=== PATIENT | male | born 1965 | race Two or more races ===

== ENCOUNTER 2016-09-23 02:38 | Observation (INO) | payer MEDICAID ==
[~2016-09-23] VITALS: Ht 170.2 cm; Wt 90.3 kg
[2016-09-23] MEDS ORDERED: ASPIRIN 81 MG TAB PO STA (03:49)
--- NOTE | 2016-09-23 03:54 | ERD ---
ER Documentation Chief Complaint Date/Time DATE: 09/23/16 TIME: 03:50 Chief Complaint Pt reports worsening CP and hx of stent x 1 12/03/15 HPI Patient is a 51-year-old male who presents with gradual onset, intermittent, pressure-like chest discomfort associated with shortness of breath for 1-1/2 months. He states that it is sometimes exacerbated when he eats or when he lies down at night, and improves when he walks. He denies cough, fever, abdominal pain, back pain. He states that he has had the sensation continuously for the entire day, and has had symptoms that last for entire days in the past. He cannot state why he chose to come to the ER today, but states that his symptoms are the same as they have been for the last month and a half. The patient had a stent placed in [facility] last year. He takes aspirin daily. 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 ROS All systems reviewed and are negative except as per history of present illness. Medications Home Meds Reported Medications [place]-3 Fatty Acids (OMEGA-3) 1,000 Mg Capsule, 1000 MG PO, CAP 09/23/16 Green Tea [place] Extract (Green Tea) 1 Each Capsule, 1 EACH PO, CAP 09/23/16 Rosuvastatin Calcium* (Crestor*) 20 Mg Tablet, 20 MG PO QHS, #30 TAB 09/23/16 Cholestyramine* (Cholestyramine* Powder) 378 Gm Powder, 4 GM PO QID, EA 09/23/16 Nicardipine Hcl* (Cardene*) 20 Mg Capsule, 20 MG PO, CAP 09/23/16 Aspirin* (Aspirin* EC) 81 Mg Tablet.dr, 81 MG PO DAILY, TAB 09/23/16 Hydrocodone/Acetaminophen ([place] 5-325 Tablet) 1 Each Tablet, 1 EACH PO, TAB 09/23/16 Ibuprofen* (Ibuprofen*) 800 Mg Tab, 800 MG PO Q6H Y for PAIN, TAB 09/23/16 Allergies Allergies: Coded Allergies: No Known Allergy (Unverified , 09/23/16) PMhx/Soc Past medical history: Coronary artery disease, hypercholesterolemia, neurogenic bladder, gastritis Past surgical history: Stent, left arm laceration repair Social history: Smokes occasionally, denies alcohol. FmHx Family History: No coronary disease, No diabetes Physical Exam Vitals Vital Signs Date Time Temp Pulse Resp B/P Pulse Ox O2 Delivery O2 Flow Rate FiO2 09/23/16 05:30 97.8 62 18 128/88 99 Room Air 09/23/16 03:55 61 19 135/79 98 Room Air 09/23/16 02:50 98.3 68 16 156/82 98 Physical Exam Const: Alert, no acute distress Head: Atraumatic Eyes: Normal Conjunctiva, no pallor, no icterus ENT: Normal External Ears, Nose and Mouth. Moist mucous membranes Neck: Full range of motion. No JVD Resp: Clear to auscultation bilaterally, no wheezes, no rales Cardio: Regular rate and rhythm, no murmurs Abd: Soft, non tender, non distended. No guarding, no rebound Skin: No petechiae or rashes Back: No midline or flank tenderness Ext: No cyanosis, or edema Neur: Awake and alert, cranial nerves II through XII intact bilaterally, moves and feels 4 extremities appropriately Psych: Normal Mood and Affect Result Diagram: 09/23/16 0400 09/23/16 0400 Results 24 hrs Laboratory Tests Test 09/23/16 04:00 White Blood Count 5.810^3/ul Red Blood Count 4.8110^6/ul Hemoglobin 14.3g/dl Hematocrit 40.7% Mean Corpuscular Volume 84.6fl Mean Corpuscular Hemoglobin 29.7pg Mean Corpuscular Hemoglobin Concent 35.1g/dl Red Cell Distribution Width 14.2% Platelet Count 03395^3/UL Mean Platelet Volume 12.1fl Neutrophils % 53.3% Lymphocytes % 31.6% Monocytes % 9.1% Eosinophils % 5.3% Basophils % 0.5% Nucleated Red Blood Cells % 0.0/100WBC Neutrophils # 3.110^3/ul Lymphocytes # 1.810^3/ul Monocytes # 0.510^3/ul Eosinophils # 0.310^3/ul Basophils # 0.010^3/ul Nucleated Red Blood Cells # 0.010^3/ul Prothrombin Time 13.2Sec Prothrombin Time Ratio 1.0 INR International Normalized Ratio 1.00 Activated Partial Thromboplast Time 34.5Sec Sodium Level 143mmol/L Potassium Level 3.9mmol/L Chloride Level 107mmol/L Carbon Dioxide Level 24mmol/L Anion Gap 16 Blood Urea Nitrogen 13mg/dl Creatinine 0.84mg/dl Glucose Level 85mg/dl Calcium Level 9.4mg/dl Total Bilirubin 0.4mg/dl Direct Bilirubin 0.00mg/dl Indirect Bilirubin 0.4mg/dl Aspartate Amino Transf (AST/SGOT) 30IU/L Alanine Aminotransferase (ALT/SGPT) 40IU/L Alkaline Phosphatase 97IU/L Troponin I 0.029ng/ml B-Type Natriuretic Peptide 42PG/ML Total Protein 7.6g/dl Albumin 4.9g/dl Globulin 2.70g/dl Albumin/Globulin Ratio 1.81 Current Medications Medications (Trade) Dose Ordered Sig/Martita Route PRN Reason Start Time Stop Time Status Last Admin Dose Admin Aspirin (Aspirin) 162 mg ONCE STAT PO 09/23/16 03:49 09/23/16 03:51 DC 09/23/16 04:11 Ondansetron HCl (Zofran Inj) 4 mg ER BRIDGE PRN IV NAUSEA AND/OR VOMITING 09/23/16 06:30 09/24/16 06:29 Acetaminophen (Tylenol Tab) 650 mg ER BRIDGE PRN PO MILD PAIN/FEVER 09/23/16 06:30 09/24/16 06:29 Procedures/MDM EKG read by me: Time 0245, rate 67 Rhythm: Normal sinus [place]: Left axis deviation Intervals: Normal ST-T waves: no ischemic changes Ectopy: No Q-waves: No Impression: Left ventricular hypertrophy, no evidence of ischemia or arrhythmia MDM: Patient is a 51-year-old male with history of coronary artery disease status post stent who presents to the ER for intermittent chest pain for the last month. His EKG shows LVH without ischemic changes, and his troponin is marginally elevated at 0.03. Given the patient's known history of coronary artery disease and lack of follow-up, I will admit him for ACS rule out and cardiology consultation. Aspirin was given in the ER. I suspect that the patient's symptoms may be gastrointestinal based upon his description, but I cannot exclude atypical presentation of ACS. There are no features that are concerning for PE or aortic dissection. Departure Diagnosis: Primary Impression: Chest pain Chest pain type: precordial pain Qualified Code: R07.2 - Precordial pain Condition: Stable GERRI GONGORA MD Sep 23, 2016 03:54
[2016-09-23 04:21] LABS: ADD SCAN DIFF NO
--- NOTE | 2016-09-23 04:25 | RADRPT ---
PROCEDURE: XR Chest. CLINICAL INDICATION: Chest pain TECHNIQUE: AP Portable chest. COMPARISON: No pertinent prior examinations were submitted for comparison. FINDINGS: There is mild cardiomegaly. There is mild pulmonary vascular congestion. The osseous structures ar e unremarkable. IMPRESSION: Mild pulmonary vascular congestion. RPTAT: HIKT .Mike Pat MD, MD Date Time Electronically viewed and signed by .Mike Pat MD, MD on 09/23/2016 04:25 .T/
[2016-09-23 04:43] LABS: ALBUMIN 4.9 g/dl (3.3-4.9); ALBUMIN/GLOBULIN RATIO 1.81; BILIRUBIN,INDIRECT 0.4 mg/dl (0-1.1); BILIRUBIN,TOTAL 0.4 mg/dl (0.2-1.3); CALCIUM 9.4 mg/dl (8.4-10.2); CREATININE 0.84 mg/dl (0.61-1.24); POTASSIUM 3.9 mmol/L (3.5-5.1); TOTAL PROTEIN 7.6 g/dl (6.1-8.1)
[2016-09-23 04:50] LABS: BASOPHILS % 0.5 % (0.0-2.0); EOSINOPHILS # 0.3 10^3/ul (0.0-0.5); EOSINOPHILS % 5.3 % (0.0-7.0); HEMATOCRIT 40.7 % (42.0-52.0); HEMOGLOBIN 14.3 g/dl (14.0-18.0); LYMPHOCYTES # 1.8 10^3/ul (0.8-2.9); LYMPHOCYTES % 31.6 % (15.0-51.0); MEAN CORPUSCULAR HEMOGLOBIN 29.7 pg (29.0-33.0); MEAN CORPUSCULAR HGB CONC 35.1 g/dl (32.0-37.0); MEAN CORPUSCULAR VOLUME 84.6 fl (82.0-101.0); MEAN PLATELET VOLUME 12.1 fl (7.4-10.4); MONOCYTE # 0.5 10^3/ul (0.3-0.9); MONOCYTES % 9.1 % (0.0-11.0); NEUTROPHIL # 3.1 10^3/ul (1.6-7.5); NEUTROPHILS % 53.3 % (39.0-77.0); PLATELET COUNT 212 10^3/UL (140-415); RED BLOOD COUNT 4.81 10^6/ul (4.70-6.10); RED CELL DISTRIBUTION WIDTH 14.2 % (11.5-14.5); WHITE BLOOD COUNT 5.8 10^3/ul (4.8-10.8)
[2016-09-23 04:53] LABS: TROPONIN-I 0.029 ng/ml (0.00-0.12)
[2016-09-23] MEDS ORDERED: CHOL378P PO (05:16)
[2016-09-23] MEDS ORDERED: OMEG10006 PO (05:16)
[2016-09-23] MEDS ORDERED: NICA20CA PO (05:16)
[2016-09-23] MEDS ORDERED: ASPI-664 PO (05:16)
[2016-09-23] MEDS ORDERED: ROSU20TA PO (05:16)
[2016-09-23] MEDS ORDERED: HYDR-906 PO (05:16)
[2016-09-23] MEDS ORDERED: IBUP800T25 PO (05:16)
[2016-09-23] MEDS ORDERED: GREE1CAP PO (05:16)
[2016-09-23 05:25] LABS: PROTIME 13.2 Sec (12.2-14.2)
[2016-09-23 05:26] LABS: PARTIAL THROMBOPLASTIN TIME 34.5 Sec (25.0-35.0)
[2016-09-23 05:30] VITALS: TEMP 97.8
[2016-09-23] MEDS ORDERED: ACETAMINOPHEN 325 MG TAB PO PRN ×2 (06:30→07:30)
[2016-09-23] MEDS ORDERED: ONDANSETRON 4 MG INJ IV PRN ×2 (06:30→07:30)
[2016-09-23] MEDS ORDERED: NACL 0.9% 3 ML SYG IV SCH (07:30)
[2016-09-23] MEDS: SOD CHLORIDE 0.9% 1,000 ML IV SCH ×2 (08:20→20:39)
--- NOTE | 2016-09-23 09:27 | HP ---
Date/Time of Note Date/Time of Note DATE: 09/23/16 TIME: 09:20 Assessment/Plan VTE Prophylaxis VTE Prophylaxis Intervention: heparin Lines/Catheters IV Catheter Type (from Nrsg): Saline Lock Assessment/Plan Problems: (1) Chest pain Status: Acute Comment: His history is somewhat nebulous and is not entirely clear that this is cardiac chest pain. However given the prior history and the multiple risk factors we will err on the side of caution bring him in for rule out [place] protocol and formalized evaluation. It is an atypical presentation especially given his prior history. Cardiology consult has been requested as has echocardiography. Qualifiers: Chest pain type: other chest pain Qualified Code: R07.89 - Other chest pain (2) History of coronary artery stent placement Status: Chronic Comment: Noted. (3) Essential hypertension Status: Chronic Comment: He has been on nicardipine. For the time being given the chest pain and we can switch that over to a beta-heidy with an A2 receptor heidy (4) Hyperlipidemia Status: Chronic Comment: We will continue statin therapy along with omega-3 fish oil. Qualifiers: Hyperlipidemia type: mixed hyperlipidemia Qualified Code: E78.2 - Mixed hyperlipidemia (5) Closed compression fracture of L1 lumbar vertebral body Status: Chronic Comment: Noted. (6) History of neurogenic bladder Status: Chronic Comment: Will be doing bladder scans and intermittent catheterization as indicated. 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 He reports a history of a prior coronary stenting. He has a history of hypertension and hyperlipidemia but not diabetes. He smokes but is attempting to minimize how much she is smoking. He has recently moved into this area 5 months ago and has made contact with the primary care physician once at a clinic in [place]. His prior cardiac interventions were in [facility]. He reports that he was in his usual state of health in the last 1-1-1/2 months he has noticed sensation of pressure as if there is a pressure of coming from the stomach up into the chest. His also had pinpoint right sided costosternal pain. This is actually reportedly relieved by walking and is worse at night especially if he lies in bed or eats. He is vague and unclear when asked if this is similar to the symptoms he had before his prior angioplasty. He describes that episode is having a decrease in exercise tolerance which she is not having now. He presented to the emergency room for evaluation. ROS Constitutional: no complaints (No fevers chills sweats or weight loss) Eyes: no complaints ENT: no complaints Respiratory: no complaints (No chest pain no PND and orthopnea. The family does report he snores), other (Snoring) Cardiovascular: chest pain (See history of present illness) Gastrointestinal: no complaints Genitourinary: no complaints Musculoskeletal: no complaints Skin: no complaints Neurologic: no complaints Endocrine: no complaints Psychological: nl mood/affect, no complaints Immunologic: no complaints PMH/Family/Social Past Medical History Medical History: coronary artery disease, high cholesterol, hypertension, other (Status post traumatic L1 compression fracture with reported neurogenic bladder) Past Surgical History Past Surgical Hx: no surgical history Family History Significant Family History: heart disease, hypertension Social History Alcohol Use: rarely Smoking Status: Current some day smoker Drug Use: none Exam/Review of Systems Vital Signs Vitals Vital Signs Date Time Temp Pulse Resp B/P Pulse Ox O2 Delivery O2 Flow Rate FiO2 09/23/16 07:00 60 18 121/79 97 Room Air 09/23/16 05:30 97.8 Exam Constitutional: alert, oriented, well developed Head: atraumatic, normocephalic Eyes: EOMI, nl conjunctiva, nl lids, nl sclera ENMT: mucosa pink and moist, nl external ears & nose, nl lips & teeth, nl nasal mucosa & septum Neck: non-tender, supple Respiratory: clear to auscultation, normal air movement Cardiovascular: nl pulses, regular rate and rhythm Gastrointestinal: nl liver, spleen, non-tender, soft Musculoskeletal: nl extremities to inspection, nl gait and stance Extremities: normal pulses Neurological: SAIL REPAIRER II-XII intact, nl mental status, nl speech, nl strength Skin: nl turgor, rash or lesions Lymph: nl lymph nodes Labs Result Diagram: 09/23/1639909/23/16399 Medications Medications Current Medications Sodium Chloride (NS) 1,000 ml @ 70 mls/hr [id number] IV Last administered on 09/23t 08:20; Admin Dose 70 MLS/HR; Start 09/23/16 at 07:16 Ondansetron HCl (Zofran Inj) 4 mg Q6H PRN IV NAUSEA AND/OR VOMITING; Start at 07:30 Acetaminophen (Tylenol Tab) 650 mg Q6H PRN PO PAIN LEVEL 1-3 OR FEVER Last administered on 09/23/16t 08:44; Admin Dose 650 MG; Start 09/23/16 at 07:30 Pantoprazole (Protonix Iv) 40 mg DAILY@06 IV ; Start 09/24/16 at 06:00 SMITH SADLER MD Sep 23, 2016 09:27
[2016-09-23] MEDS: ASPIRIN (EC) 81 MG TAB PO SCH (10:02)
[2016-09-23] MEDS: METOPROLOL (XL) 25 MG TAB PO SCH ×2 (10:03→20:38)
[2016-09-23 10:18] LABS: CREATINE KINASE 121 IU/L (23-200)
[2016-09-23 10:33] LABS: CK-MB 0.89 ng/ml (0.0-2.4); TROPONIN-I < 0.012 ng/ml (0.00-0.12)
--- NOTE | 2016-09-23 11:57 | CONS ---
Date/Time of Note Date/Time of Note DATE: 09/23/16 TIME: 11:54 Assessment/Plan Assessment/Plan Chief Complaint/Hosp Course 1) Atypical chest pain 2) CAD 3) noncompliance 4) smoker 5) coronary angioplasty status Problems: Additional Assessment/Plan 1) echo 2) serial troponin 3) ASA, statin Consultation Date/Type/Reason Admit Date/Time 09/23/2016 Date of Consultation: Sep 23, 2016 Type of Consultation: cv Reason for Consultation chest pain Referring Provider: SMITH SADLER MD Hx of Present Illness patient reports chest pain, pressure, permanent since 1 months, not positional, exertional or inspirational. no syncope, no sob, no palpitations, still smokes. Constitutional: no complaints Eyes: no complaints ENT: no complaints Respiratory: no complaints (No chest pain no PND and orthopnea. The family does report he snores), other (Snoring) Cardiovascular: chest pain (See history of present illness) Gastrointestinal: no complaints Genitourinary: no complaints Musculoskeletal: no complaints Skin: no complaints Neurologic: no complaints Psychological: nl mood/affect, no complaints Immunologic: no complaints Past Medical History Medical History: coronary artery disease, high cholesterol, hypertension, other (Status post traumatic L1 compression fracture with reported neurogenic bladder) Past Surgical History Past Surgical Hx: no surgical history, angioplasty Social History Alcohol Use: rarely Smoking Status: Current some day smoker Drug Use: none Exam/Review of Systems Vital Signs Vitals Vital Signs Date Time Temp Pulse Resp B/P Pulse Ox O2 Delivery O2 Flow Rate FiO2 09/23/16 07:00 60 18 121/79 97 Room Air 09/23/16 05:30 97.8 Exam Constitutional: alert, oriented Head: normocephalic Neck: supple Respiratory: clear to auscultation Cardiovascular: regular rate and rhythm Gastrointestinal: soft Musculoskeletal: nl extremities to inspection Extremities: normal pulses Results Result Diagram: 09/23/16 0400 09/23/16 0400 Results 24 hrs Laboratory Tests Test 09/23/16 04:00 09/23/16 09:45 09/23/16 09:48 White Blood Count 5.8 Red Blood Count 4.81 Hemoglobin 14.3 Hematocrit 40.7 L Mean Corpuscular Volume 84.6 Mean Corpuscular Hemoglobin 29.7 Mean Corpuscular Hemoglobin Concent 35.1 Red Cell Distribution Width 14.2 Platelet Count 212 Mean Platelet Volume 12.1 H Neutrophils % 53.3 Lymphocytes % 31.6 Monocytes % 9.1 Eosinophils % 5.3 Basophils % 0.5 Nucleated Red Blood Cells % 0.0 Neutrophils # 3.1 Lymphocytes # 1.8 Monocytes # 0.5 Eosinophils # 0.3 Basophils # 0.0 Nucleated Red Blood Cells # 0.0 Prothrombin Time 13.2 Prothrombin Time Ratio 1.0 INR International Normalized Ratio 1.00 Activated Partial Thromboplast Time 34.5 Sodium Level 143 Potassium Level 3.9 Chloride Level 107 Carbon Dioxide Level 24 Anion Gap 16 Blood Urea Nitrogen 13 Creatinine 0.84 Glucose Level 85 Calcium Level 9.4 Total Bilirubin 0.4 Direct Bilirubin 0.00 Indirect Bilirubin 0.4 Aspartate Amino Transf (AST/SGOT) 30 Alanine Aminotransferase (ALT/SGPT) 40 Alkaline Phosphatase 97 Troponin I 0.029 < 0.012 B-Type Natriuretic Peptide 42 Total Protein 7.6 Albumin 4.9 Globulin 2.70 Albumin/Globulin Ratio 1.81 Creatine Kinase 121 Creatine Kinase Index 0.7 Creatinine Kinase MB (Mass) 0.89 Hepatitis B Surface Antigen NEGATIVE Hepatitis C Antibody NEGATIVE Medications Medications Current Medications Sodium Chloride (NS) 1,000 ml @ 70 mls/hr [id number] IV Last administered on 09/23 08:20; Admin Dose 70 MLS/HR; Start 09/23/16 at 07:16 Ondansetron HCl (Zofran Inj) 4 mg Q6H PRN IV NAUSEA AND/OR VOMITING; Start at 07:30 Acetaminophen (Tylenol Tab) 650 mg Q6H PRN PO PAIN LEVEL 1-3 OR FEVER Last administered on 09/23/16 08:44; Admin Dose 650 MG; Start 09/23/16 at 07:30 Pantoprazole (Protonix Iv) 40 mg DAILY@06 IV ; Start 09/24/16 at 06:00 Metoprolol Succinate (Toprol Xl) 25 mg BID PO Last administered on 09/23/16 10 :03; Admin Dose 25 MG; Start 09/23/16 at 09:30 Aspirin (Halfprin) 81 mg DAILY PO Last administered on 09/23/16 10:02; Admin Dose 81 MG; Start 09/23/16 at 09:30 Cholestyramine Resin (Questran) 1 pkt QAM PO ; Start 09/24/16 at 09:00 Valsartan (Diovan) 40 mg QHS PO ; Start 09/23/16 at 21:00 Fish Oil (Fish Oil) 2,000 mg BID PO ; Start 09/23/16 at 21:00 GWEN WORTHINGTON MD Sep 23, 2016 11:57
[2016-09-23 15:28] LABS: CREATINE KINASE 111 IU/L (23-200)
[2016-09-23 15:46] LABS: CK-MB 0.84 ng/ml (0.0-2.4); TROPONIN-I < 0.012 ng/ml (0.00-0.12)
[2016-09-23] MEDS: ATORVASTATIN 40 MG TAB PO SCH ×2 (17:35→20:36)
[2016-09-23 20:00] VITALS: Ht 170.2 cm; Wt 90.3 kg
[2016-09-23 20:08] VITALS: BP 113/71; RESP 15
[2016-09-23 20:09] VITALS: PULSE 56
[2016-09-23] MEDS: FISH OIL 1,000 MG CAP PO SCH (20:37)
[2016-09-23] MEDS ORDERED: VALSARTAN 80 MG TAB PO SCH (21:00)
[2016-09-24] VITALS (8 sets, daily range): BP systolic 98–119; BP diastolic 54–72; PULSE 54–73; RESP 17–18
[2016-09-24] MEDS: SOD CHLORIDE 0.9% 1,000 ML IV SCH (05:58)
[2016-09-24] MEDS ORDERED: PANTOPRAZOLE 40 MG INJ IV SCH (06:00)
[2016-09-24 06:04] LABS: ADD SCAN DIFF NO
[2016-09-24 06:10] LABS: BASOPHILS % 0.5 % (0.0-2.0); EOSINOPHILS # 0.3 10^3/ul (0.0-0.5); EOSINOPHILS % 5.4 % (0.0-7.0); HEMATOCRIT 40.8 % (42.0-52.0); HEMOGLOBIN 14.5 g/dl (14.0-18.0); LYMPHOCYTES # 1.8 10^3/ul (0.8-2.9); LYMPHOCYTES % 29.8 % (15.0-51.0); MEAN CORPUSCULAR HGB CONC 35.5 g/dl (32.0-37.0); MEAN CORPUSCULAR VOLUME 84.5 fl (82.0-101.0); MONOCYTE # 0.5 10^3/ul (0.3-0.9); MONOCYTES % 7.9 % (0.0-11.0); NEUTROPHIL # 3.3 10^3/ul (1.6-7.5); NEUTROPHILS % 56.2 % (39.0-77.0); PLATELET COUNT 201 10^3/UL (140-415); RED BLOOD COUNT 4.83 10^6/ul (4.70-6.10); RED CELL DISTRIBUTION WIDTH 13.8 % (11.5-14.5); WHITE BLOOD COUNT 5.9 10^3/ul (4.8-10.8)
[2016-09-24 06:39] LABS: ALBUMIN 4.5 g/dl (3.3-4.9); ALBUMIN/GLOBULIN RATIO 2.04; BILIRUBIN,INDIRECT 0.3 mg/dl (0-1.1); BILIRUBIN,TOTAL 0.3 mg/dl (0.2-1.3); CALCIUM 8.5 mg/dl (8.4-10.2); CREATININE 0.85 mg/dl (0.61-1.24); MAGNESIUM 1.9 mg/dl (1.7-2.5); POTASSIUM 4.1 mmol/L (3.5-5.1); TOTAL PROTEIN 6.7 g/dl (6.1-8.1)
[2016-09-24 07:29] LABS: THYROID STIMULATING HORMONE 1.34 MIU/L (0.465-4.680)
[2016-09-24] MEDS ORDERED: CHOLESTYRAMINE 4 GM PACKET PO SCH (09:00)
[2016-09-24] MEDS: FISH OIL 1,000 MG CAP PO SCH (09:37)
[2016-09-24] MEDS: ASPIRIN (EC) 81 MG TAB PO SCH (09:37)
[2016-09-24] MEDS: METOPROLOL (XL) 25 MG TAB PO SCH (09:38)
--- NOTE | 2016-09-24 11:34 | PN ---
Date/Time of Note Date/Time of Note DATE: 09/24/16 TIME: 11:31 Assessment/Plan VTE Prophylaxis VTE Prophylaxis Intervention: heparin Lines/Catheters IV Catheter Type (from Nrs): Saline Lock Assessment/Plan Problems: (1) Chest pain Status: Acute Comment: Symptoms fully resolved. I believe that these symptoms were atypical to the point that I am not sure that this truly represent cardiac disease. However given the past history is an appropriate consideration to some type of cardiac testing. The main question here as well as be done as an inpatient or as an outpatient. I will defer off to our organizational effectiveness consultant for this delineation. Qualifiers: Chest pain type: other chest pain Qualified Code: R07.89 - Other chest pain (2) Coronary artery disease Status: Chronic Comment: He has a known history of coronary disease. Whether the symptoms represented and really exacerbation of that or not is to be determined. At the present time he is doing relatively well. Qualifiers: Coronary Disease-Associated Artery/Lesion type: [place] artery [place] vs. transplanted heart: [place] heart Associated angina: angina presence unspecified Qualified Code: I25.10 - Coronary artery disease involving [place] coronary artery of [place] heart, angina presence unspecified (3) Closed compression fracture of L1 lumbar vertebral body Status: Chronic Comment: Noted. Please note my request for bladder scanning was not done. (4) Hyperlipidemia Status: Chronic Comment: His lipid control as an outpatient was poor. Given the prior history and risk factors recommend for the high dose statin therapy I have written those orders Qualifiers: Hyperlipidemia type: mixed hyperlipidemia Qualified Code: E78.2 - Mixed hyperlipidemia (5) Essential hypertension Status: Chronic Comment: Adequately controlled. Subjective 24 Hr Interval Summary Free Text/Dictation Patient reports he is feeling much better today without symptoms. Constitutional: no complaints (No fevers chills or sweats) Eyes: no complaints Respiratory: no complaints Cardiovascular: no complaints Gastrointestinal: no complaints Genitourinary: no complaints Exam/Review of Systems Vital Signs Vitals Vital Signs Date Time Temp Pulse Resp B/P Pulse Ox O2 Delivery O2 Flow Rate FiO2 09/24/16 09:00 97.8 62 18 119/61 96 09/23/16 19:20 Room Air 09/23/16 12:00 2.0 Intake and Output 09/23/16 09/23/16 09/24/16 15:00 23:00 07:00 Intake Total 450 ml Balance 450 ml Exam Constitutional: alert, oriented Respiratory: clear to auscultation, normal air movement Cardiovascular: nl pulses, regular rate and rhythm Gastrointestinal: nl liver, spleen, non-tender, soft Results Result Diagram: 09/24/16 0535 09/24/16 0535 Results 24 hrs Laboratory Tests Test 09/23/16 14:55 09/24/16 05:35 09/24/16 05:38 Creatine Kinase 111 Creatine Kinase Index 0.8 Creatinine Kinase MB (Mass) 0.84 Troponin I < 0.012 White Blood Count 5.9 Red Blood Count 4.83 Hemoglobin 14.5 Hematocrit 40.8 L Mean Corpuscular Volume 84.5 Mean Corpuscular Hemoglobin 30.0 Mean Corpuscular Hemoglobin Concent 35.5 Red Cell Distribution Width 13.8 Platelet Count 201 Mean Platelet Volume 12.0 H Neutrophils % 56.2 Lymphocytes % 29.8 Monocytes % 7.9 Eosinophils % 5.4 Basophils % 0.5 Nucleated Red Blood Cells % 0.0 Neutrophils # 3.3 Lymphocytes # 1.8 Monocytes # 0.5 Eosinophils # 0.3 Basophils # 0.0 Nucleated Red Blood Cells # 0.0 Sodium Level 140 Potassium Level 4.1 Chloride Level 108 Carbon Dioxide Level 25 Anion Gap 11 Blood Urea Nitrogen 11 Creatinine 0.85 Glucose Level 91 Calcium Level 8.5 Magnesium Level 1.9 Total Bilirubin 0.3 Direct Bilirubin 0.00 Indirect Bilirubin 0.3 Aspartate Amino Transf (AST/SGOT) 25 Alanine Aminotransferase (ALT/SGPT) 41 Alkaline Phosphatase 81 Total Protein 6.7 Albumin 4.5 Globulin 2.20 Albumin/Globulin Ratio 2.04 Triglycerides Level 163 H Cholesterol Level 261 H LDL Cholesterol, Calculated 199 HDL Cholesterol 29 Cholesterol/HDL Ratio 9.0 Thyroid Stimulating Hormone (TSH) 1.340 Hemoglobin A1c 5.1 Medications Medications Current Medications Sodium Chloride (NS) 1,000 ml @ 70 mls/hr [id number] IV Last administered on 09/24 05:58; Admin Dose 70 MLS/HR; Start 09/23/16 at 07:16 Ondansetron HCl (Zofran Inj) 4 mg Q6H PRN IV NAUSEA AND/OR VOMITING; Start at 07:30 Acetaminophen (Tylenol Tab) 650 mg Q6H PRN PO PAIN LEVEL 1-3 OR FEVER Last administered on 09/23/16 08:44; Admin Dose 650 MG; Start 09/23/16 at 07:30 Pantoprazole (Protonix Iv) 40 mg DAILY@06 IV Last administered on 09/24/16 05: 58; Admin Dose 40 MG; Start 09/24/16 at 06:00 Metoprolol Succinate (Toprol Xl) 25 mg BID PO Last administered on 09/24/16 09 :38; Admin Dose 25 MG; Start 09/23/16 at 09:30 Aspirin (Halfprin) 81 mg DAILY PO Last administered on 09/24/16 09:37; Admin Dose 81 MG; Start 09/23/16 at 09:30 Cholestyramine Resin (Questran) 1 pkt QAM PO Last administered on 09/24/16 09: 38; Admin Dose 1 PKT; Start 09/24/16 at 09:00 Valsartan (Diovan) 40 mg QHS PO Last administered on 09/23/16 20:37; Admin Dose 40 MG; Start 09/23/16 at 21:00 Fish Oil (Fish Oil) 2,000 mg BID PO Last administered on 09/24/16 09:37; Admin Dose 2,000 MG; Start 09/23/16 at 21:00 SMITH SADLER MD Sep 24, 2016 11:34
--- NOTE | 2016-09-24 11:42 | RADRPT ---
Echocardiogram Report Patient Name: JAREK ROCHA Gender: Male Date: 1965 Study Date: 23-Sep-2016 Experience Planning Strategist: Adriana [facility] Location: [facility] Ref. Physician: BARBARA PEREZ Quality: Adequate Procedures: Transthoracic echocardiogram with complete 2D, M-Mode, and doppler examination. Indications: Chest Pain. 2D/M Mode Doppler Measurement Value Normal Ranges Measurement Value Normal Ranges LVIDd 2D 4.6 3.5 - 5.6 cm AV Peak [place] 1.4 m/sec LVIDs 2D 3.1 2.1 - 4.1 cm AV Peak PG 7.3 mmHg LVPWd 2D 1.1 0.6 - 1.1 cm LVOT Peak [place] 0.9 m/sec IVSd 2D 1.1 0.6 - 1.1 cm LVOT Peak PG 3.5 mmHg AoR Diam 2D 2.9 2.0 - 3.7 cm MV E Peak [place] 0.7 m/sec EDV 2D 97.8 cm3 MV A Peak [place] 0.9 m/sec ESV 2D 29.6 cm3 MV E/A 0.8 LA Dimen 2D 3.8 2.3 - 4.0 cm MV Decel Time 314 msec MV Decel [place] 2 MV E/A 0.8 Findings Left Ventricle: Normal left ventricular systolic function. Normal left ventricular cavity size. Mild concentric left ventricular hypertrophy. Ejection fraction is visually estimated at 60 %. Tissue Doppler/Mitral Doppler indices are consistent with impaired relaxation (Stage I diastolic dysfunction). Right Ventricle: Normal right ventricular size. Normal right ventricular systolic function. Left Atrium: The left atrium is normal in size. Right Atrium: The right atrium is normal in size. Mitral Valve: Mild mitral annular calcification. Trace mitral regurgitation. Aortic Valve: Normal appearance of the aortic valve. No significant aortic stenosis or insufficiency. Tricuspid Valve: Normal appearance and function of the tricuspid valve with trace physiologic regurgitation. Unable to obtain RVSP due to minimal presence of tricuspid regurgitation. Pericardium: Normal pericardium with no significant pericardial effusion. Aorta: Normal aortic root. IVC: Normal size and normal respiratory collapse consistent with normal right atrial pressure. Conclusions Normal left ventricular systolic function. Normal left ventricular cavity size. Mild concentric left ventricular hypertrophy. Ejection fraction is visually estimated at 60 %. Tissue Doppler/Mitral Doppler indices are consistent with impaired relaxation (Stage I diastolic dysfunction). Normal right ventricular size. Normal right ventricular systolic function. The left atrium is normal in size. The right atrium is normal in size. No significant valvular stenosis or regurgitation seen. Normal pericardium with no significant pericardial effusion. Electronically Signed By: Elian Grant 24-Sep-2016 11:41:35 -0700 Patient Name: JAREK ROCHA Study Date: 23-Sep-[id number]
--- NOTE | 2016-09-24 12:08 | PDOCDIS ---
Discharge Instructions DIAGNOSIS Discharge Diagnosis: Atypical chest pain; history of coronary artery disease; hyperlipidemia CONDITION Patient Condition: Fair HOME CARE INSTRUCTIONS: Diet Instructions: Regular ACTIVITY: Activity Restrictions: No Restrictions FOLLOW UP/APPOINTMENTS Appointments Follow-up with cardiology;Dr. Torres in one week; primary physician in 2 weeks SCHOOL/WORK RELEASE May return to School/Work with: No Restrictions SMITH SADLER MD Sep 24, 2016 12:08
[2016-09-24] MEDS ORDERED: VALS80TA29 PO (12:10)
[2016-09-24] MEDS ORDERED: METO25TA7 PO (12:10)
[2016-09-24] MEDS ORDERED: OMEG1CAP55 PO (12:10)
[2016-09-24] MEDS ORDERED: ATOR40TA68 PO (12:10)
--- NOTE | 2016-09-24 12:15 | DS ---
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 He reports a history of a prior coronary stenting. He has a history of hypertension and hyperlipidemia but not diabetes. He smokes but is attempting to minimize how much she is smoking. He has recently moved into this area 5 months ago and has made contact with the primary care physician once at a clinic in [place]. His prior cardiac interventions were in [facility]. He reports that he was in his usual state of health in the last 1-1-1/2 months he has noticed sensation of pressure as if there is a pressure of coming from the stomach up into the chest. His also had pinpoint right sided costosternal pain. This is actually reportedly relieved by walking and is worse at night especially if he lies in bed or eats. He is vague and unclear when asked if this is similar to the symptoms he had before his prior angioplasty. He describes that episode is having a decrease in exercise tolerance which she is not having now. He presented to the emergency room for evaluation. Hospital Course 1) Atypical chest pain 2) CAD 3) noncompliance 4) smoker 5) coronary angioplasty status Jon 51-year-old [place] gentleman with atypical chest pain. He has ruled out for myocardial infarction and is now stable for discharge. He will be evaluated as an outpatient. The meantime adjustments to his regimen been made to get better control of his cholesterol pattern. He has no known communicable diseases his rehabilitation potential is good. Home Meds Active Scripts Valsartan (Valsartan) 80 Mg Tablet, 40 MG PO QHS for 30 Days, TAB 1 Refill Prov:SMITH SADLER MD 09/24/16 Metoprolol Succinate* (Toprol XL*) 25 Mg Tab.sr.24h, 25 MG PO BID for 30 Days, 1 Refill Prov:SMITH SADLER MD 09/24/16 Atorvastatin* (Atorvastatin*) 40 Mg Tablet, 80 MG PO AC DINNER for 30 Days, TAB Prov:SMITH SADLER MD 09/24/16 [place]-3/Dha/Epa/Fish Oil (FISH OIL EC 1,000 MG SOFTGEL) 1 Each Capsule., 2000 MG PO BID for 30 Days 2 pills in the morning 2 pills in the evening of what you have at home Prov:SMITH SADLER MD 09/24/16 Reported Medications [place]-3 Fatty Acids (OMEGA-3) 1,000 Mg Capsule, 1000 MG PO, CAP 09/23/16 Green Tea [place] Extract (Green Tea) 1 Each Capsule, 1 EACH PO, CAP 09/23/16 Rosuvastatin Calcium* (Crestor*) 20 Mg Tablet, 20 MG PO QHS, #30 TAB 09/23/16 Cholestyramine* (Cholestyramine* Powder) 378 Gm Powder, 4 GM PO QID, EA 09/23/16 Nicardipine Hcl* (Cardene*) 20 Mg Capsule, 20 MG PO, CAP 09/23/16 Aspirin* (Aspirin* EC) 81 Mg Tablet.dr, 81 MG PO DAILY, TAB 09/23/16 Hydrocodone/Acetaminophen ([place] 5-325 Tablet) 1 Each Tablet, 1 EACH PO, TAB 09/23/16 Ibuprofen* (Ibuprofen*) 800 Mg Tab, 800 MG PO Q6H Y for PAIN, TAB 09/23/16 Primary Care Provider Care Physician No Primary Time spent on discharge: > 30 minutes Pending Labs Laboratory Tests Test 09/23/16 14:55 09/24/16 05:35 09/24/16 05:38 Creatine Kinase 111IU/L (23-200) Creatine Kinase Index 0.8 Creatinine Kinase MB (Mass) 0.84ng/ml (0.0-2.4) Troponin I < 0.012ng/ml (0.00-0.12) White Blood Count 5.910^3/ul (4.8-10.8) Red Blood Count 4.8310^6/ul (4.70-6.10) Hemoglobin 14.5g/dl (14.0-18.0) Hematocrit 40.8% (42.0-52.0) Mean Corpuscular Volume 84.5fl (82.0-101.0) Mean Corpuscular Hemoglobin 30.0pg (29.0-33.0) Mean Corpuscular Hemoglobin Concent 35.5g/dl (32.0-37.0) Red Cell Distribution Width 13.8% (11.5-14.5) Platelet Count 76593^3/UL (140-415) Mean Platelet Volume 12.0fl (7.4-10.4) Neutrophils % 56.2% (39.0-77.0) Lymphocytes % 29.8% (15.0-51.0) Monocytes % 7.9% (0.0-11.0) Eosinophils % 5.4% (0.0-7.0) Basophils % 0.5% (0.0-2.0) Nucleated Red Blood Cells % 0.0/100WBC (0.0-0.0) Neutrophils # 3.310^3/ul (1.6-7.5) Lymphocytes # 1.810^3/ul (0.8-2.9) Monocytes # 0.510^3/ul (0.3-0.9) Eosinophils # 0.310^3/ul (0.0-0.5) Basophils # 0.010^3/ul (0.0-0.1) Nucleated Red Blood Cells # 0.010^3/ul (0.0-0.0) Sodium Level 140mmol/L (135-144) Potassium Level 4.1mmol/L (3.5-5.1) Chloride Level 108mmol/L (97-110) Carbon Dioxide Level 25mmol/L (21-31) Anion Gap 11 (8-16) Blood Urea Nitrogen 11mg/dl (7-20) Creatinine 0.85mg/dl (0.61-1.24) Glucose Level 91mg/dl (70-220) Calcium Level 8.5mg/dl (8.4-10.2) Magnesium Level 1.9mg/dl (1.7-2.5) Total Bilirubin 0.3mg/dl (0.2-1.3) Direct Bilirubin 0.00mg/dl (0.00-0.20) Indirect Bilirubin 0.3mg/dl (0-1.1) Aspartate Amino Transf (AST/SGOT) 25IU/L (15-46) Alanine Aminotransferase (ALT/SGPT) 41IU/L (13-69) Alkaline Phosphatase 81IU/L (42-121) Total Protein 6.7g/dl (6.1-8.1) Albumin 4.5g/dl (3.3-4.9) Globulin 2.20g/dl (1.3-3.2) Albumin/Globulin Ratio 2.04 Triglycerides Level 163mg/dl (0-149) Cholesterol Level 261mg/dl (100-200) LDL Cholesterol, Calculated 199mg/dl HDL Cholesterol 29mg/dl (28-71) Cholesterol/HDL Ratio 9.0RATIO Thyroid Stimulating Hormone (TSH) 1.340MIU/L (0.465-4.680) Hemoglobin A1c 5.1% (0-5.9) SMITH SADLER MD Sep 24, 2016 12:15
--- NOTE | 2016-09-24 12:50 | CONS ---
Date/Time of Note Date/Time of Note DATE: 09/24/16 TIME: 12:48 Assessment/Plan Assessment/Plan Additional Assessment/Plan Atypical chest pain Coronary artery disease Preserved ejection fraction -Serial cardiac enzymes remain negative, chest discomfort is reproducible with palpation. Symptoms do not appear cardiac in origin. No further inpatient cardiac workup needed at the current time. Continue risk factor modification, smoking cessation, medication compliance. Consultation Date/Type/Reason Admit Date/Time Sep 23, 2016 at 06:19 Initial Consult Date 09/23/16 Type of Consultation: cv Referring Provider: SMITH SADLER MD 24 HR Interval Summary Free Text/Dictation Patient feeling better, denies further chest pain except with pushing on chest wall. Denies shortness of breath Exam/Review of Systems Vital Signs Vitals Vital Signs Date Time Temp Pulse Resp B/P Pulse Ox O2 Delivery O2 Flow Rate FiO2 09/24/16 12:02 73 09/24/16 09:00 97.8 18 119/61 96 09/23/16 19:20 Room Air 09/23/16 12:00 2.0 Intake and Output 09/23/16 09/23/16 09/24/16 15:00 23:00 07:00 Intake Total 450 ml Balance 450 ml Exam No apparent distress Constitutional: alert, oriented Head: normocephalic Respiratory: other (Coarse breath sounds bilaterally, no wheezing) Cardiovascular: other (S1-S2 heard), regular rate and rhythm Gastrointestinal: bowel sounds, non-tender, soft Extremities: other (No edema) Results Result Diagram: 09/24/16 0535 09/24/16 0535 Results 24 hrs Laboratory Tests Test 09/23/16 14:55 09/24/16 05:35 09/24/16 05:38 Creatine Kinase 111 Creatine Kinase Index 0.8 Creatinine Kinase MB (Mass) 0.84 Troponin I < 0.012 White Blood Count 5.9 Red Blood Count 4.83 Hemoglobin 14.5 Hematocrit 40.8 L Mean Corpuscular Volume 84.5 Mean Corpuscular Hemoglobin 30.0 Mean Corpuscular Hemoglobin Concent 35.5 Red Cell Distribution Width 13.8 Platelet Count 201 Mean Platelet Volume 12.0 H Neutrophils % 56.2 Lymphocytes % 29.8 Monocytes % 7.9 Eosinophils % 5.4 Basophils % 0.5 Nucleated Red Blood Cells % 0.0 Neutrophils # 3.3 Lymphocytes # 1.8 Monocytes # 0.5 Eosinophils # 0.3 Basophils # 0.0 Nucleated Red Blood Cells # 0.0 Sodium Level 140 Potassium Level 4.1 Chloride Level 108 Carbon Dioxide Level 25 Anion Gap 11 Blood Urea Nitrogen 11 Creatinine 0.85 Glucose Level 91 Calcium Level 8.5 Magnesium Level 1.9 Total Bilirubin 0.3 Direct Bilirubin 0.00 Indirect Bilirubin 0.3 Aspartate Amino Transf (AST/SGOT) 25 Alanine Aminotransferase (ALT/SGPT) 41 Alkaline Phosphatase 81 Total Protein 6.7 Albumin 4.5 Globulin 2.20 Albumin/Globulin Ratio 2.04 Triglycerides Level 163 H Cholesterol Level 261 H LDL Cholesterol, Calculated 199 HDL Cholesterol 29 Cholesterol/HDL Ratio 9.0 Thyroid Stimulating Hormone (TSH) 1.340 Hemoglobin A1c 5.1 Medications Medications Current Medications Sodium Chloride (NS) 1,000 ml @ 70 mls/hr [id number] IV Last administered on 09/24 05:58; Admin Dose 70 MLS/HR; Start 09/23/16 at 07:16 Ondansetron HCl (Zofran Inj) 4 mg Q6H PRN IV NAUSEA AND/OR VOMITING; Start at 07:30 Acetaminophen (Tylenol Tab) 650 mg Q6H PRN PO PAIN LEVEL 1-3 OR FEVER Last administered on 09/23/16 08:44; Admin Dose 650 MG; Start 09/23/16 at 07:30 Pantoprazole (Protonix Iv) 40 mg DAILY@06 IV Last administered on 09/24/16 05: 58; Admin Dose 40 MG; Start 09/24/16 at 06:00 Metoprolol Succinate (Toprol Xl) 25 mg BID PO Last administered on 09/24/16 09 :38; Admin Dose 25 MG; Start 09/23/16 at 09:30 Aspirin (Halfprin) 81 mg DAILY PO Last administered on 09/24/16 09:37; Admin Dose 81 MG; Start 09/23/16 at 09:30 Cholestyramine Resin (Questran) 1 pkt QAM PO Last administered on 09/24/16 09: 38; Admin Dose 1 PKT; Start 09/24/16 at 09:00 Valsartan (Diovan) 40 mg QHS PO Last administered on 09/23/16 20:37; Admin Dose 40 MG; Start 09/23/16 at 21:00 Fish Oil (Fish Oil) 2,000 mg BID PO Last administered on 09/24/16t 09:37; Admin Dose 2,000 MG; Start 09/23/16 at 21:00 Elian Grant DO Sep 24, 2016 12:50
== END 2016-09-24 16:20 | disposition home or self-care (01) ==
LOC: E/R 02:38 → MS4 06:19
PROVIDERS: ADMIT Family Medicine; ATTEND Family Medicine
DX: R07.89 Other chest pain (principal); I25.10 Atherosclerotic heart disease of native coronary artery without angina pectoris; Z95.5 Presence of coronary angioplasty implant and graft; E78.00 Pure hypercholesterolemia, unspecified; F17.200 Nicotine dependence, unspecified, uncomplicated; Z79.82 Long term (current) use of aspirin; I10 Essential (primary) hypertension; M48.56XA Collapsed vertebra, not elsewhere classified, lumbar region, initial encounter for fracture; E78.2 Mixed hyperlipidemia; Z91.19 Patient's noncompliance with other medical treatment and regimen
CPT/HCPCS: 36415; 71010; 80053; 80061; 82550; 82553; 83036; 83735; 83880; 84443; 84484; 85025; 85610; 85730; 86803; 87340; 93005; 93306; 96374; C9113; J7030; Z7500; Z7502; Z7610; G0378; A4310

== ENCOUNTER 2017-08-14 01:03 | Emergency (ER) | END 2017-08-14 06:56 | disposition home or self-care (01) ==

== ENCOUNTER 2018-02-07 21:27 | Emergency (ER) | END 2018-02-08 00:53 | disposition home or self-care (01) ==

== ENCOUNTER 2018-09-18 15:12 | Observation (INO) | payer BC ==
[~2018-09-18] VITALS: Ht 170.2 cm; Wt 90.0 kg
[~2018-09-18 15:12] MED LIST: ASPI-817 PO; ATOR40TA68 PO; CEFI400C PO; CHOL378P PO; GREE1CAP PO; HYDR-4011 PO; IBUP-1545 PO; LEVO500T48 PO; MED4DP PO; METO-335 PO; NAPR-985 PO; OMEG-157 PO; VALS80TA30 PO
[2018-09-18] MEDS ORDERED: ONDANSETRON 4 MG INJ IV STA (15:54)
[2018-09-18] MEDS ORDERED: SOD CHLORIDE 0.9% 1,000 ML IV STA (15:54)
[2018-09-18] MEDS ORDERED: morphine 4 MG/ML VIAL IV STA (15:54)
[2018-09-18] MEDS ORDERED: ASPIRIN 81 MG TAB PO STA (15:54)
[2018-09-18] MEDS ORDERED: AMLO2.5T78 PO (16:31)
[2018-09-18] MEDS ORDERED: ASPI81TA52 PO (16:31)
[2018-09-18] MEDS ORDERED: METO-448 PO (16:42)
[2018-09-18] MEDS ORDERED: SOD CHLORIDE 0.9% 100 ML ONE ×2 (16:44→18:00)
[2018-09-18] MEDS ORDERED: IOHEXOL 100 ML ONE (16:44)
--- NOTE | 2018-09-18 16:50 | ERD ---
ER Documentation Chief Complaint Chief Complaint sharp pain @ mid chest area x 2 days radiates to the back and neck HPI Pleasant 53-year-old gentleman history of coronary artery disease with a stent who presents to the emergency room with chest pain that is approximately 2 days duration. He describes occasional chest pain that is central and frontal, sharp and somewhat pleuritic with radiation to his left back. He states recent flight at the beginning of this month from [facility]. He denies any calf swelling, no history of DVT or pulmonary embolism. He denies this is consistent with anginal equivalent. Symptoms are moderate and present currently. No fevers chills cough or productive sputum. ROS All systems reviewed and are negative except as per history of present illness. Medications Home Meds Reported Medications Metoprolol Tartrate* (Lopressor*) 25 Mg Tab, 25 MG PO DAILY, #60 TAB 09/18/18 Amlodipine Besylate* (Amlodipine Besylate*) 2.5 Mg Tablet, 2.5 MG PO DAILY, #30 TAB 09/18/18 Aspirin (Low Dose Aspirin) 81 Mg Tablet.dr, 81 MG PO DAILY, #30 TAB 09/18/18 Discontinued Reported Medications Green Tea [place] Extract (Green Tea) 1 Each Capsule, 1 EACH PO, CAP 09/23/16 Cholestyramine* (Cholestyramine* Powder) 378 Gm Powder, 4 GM PO QID, EA 09/23/16 Aspirin* (Aspirin* EC) 81 Mg Tablet.dr, 81 MG PO DAILY, TAB 09/23/16 Hydrocodone/Acetaminophen ([place] 5-325 Tablet) 1 Each Tablet, 1 EACH PO, TAB 09/23/16 Ibuprofen* (Ibuprofen*) 800 Mg Tab, 800 MG PO Q6H PRN for PAIN, TAB 09/23/16 Discontinued Scripts Cefixime (Suprax) 400 Mg Capsule, 400 MG PO DAILY, #7 CAP Prov:KIERA LUZ PA-C 04/25/18 Levofloxacin* (Levaquin*) 500 Mg Tablet, 500 MG PO DAILY for 7 Days, TAB Prov:ELICIA CORREA MD 02/08/18 Naproxen* (Naprosyn*) 500 Mg Tablet, 500 MG PO BID PRN for PAIN AND/OR INFLAMMATION for 10 Days, #20 TAB Prov:CAT CAMACHO 02/07/18 Cefixime (Suprax) 400 Mg Capsule, 400 MG PO DAILY for 14 Days, #14 CAP Prov:JANICE,MELODY 02/07/18 Naproxen* (Naprosyn*) 500 Mg Tablet, 500 MG PO BID PRN for PAIN AND/OR INFLAMMATION, #30 TAB Prov:NISH MILLAN PA-C 08/14/17 Hydrocodone/Acetaminophen ([place] 5-325 Tablet) 1 Each Tablet, 1 TAB PO Q6H PRN for PAIN, #7 TAB Prov:NISH MILLAN PA-C 08/14/17 Methylprednisolone* (Medrol* DOSE PACK) 4 Mg/Dose-Pack Tab.ds.pk, 4 MG PO . DIRECTED, #1 PACKET Prov:NISH MILLAN PA-C 08/14/17 Valsartan (Valsartan) 80 Mg Tablet, 40 MG PO QHS for 30 Days, TAB 1 Refill Prov:SMITH SADLER MD 09/24/16 Metoprolol Succinate* (Toprol XL*) 25 Mg Tab.sr.24h, 25 MG PO BID for 30 Days, 1 Refill Prov:SMITH SADLER MD 09/24/16 Atorvastatin* (Atorvastatin*) 40 Mg Tablet, 80 MG PO AC DINNER for 30 Days, TAB Prov:SMITH SADLER MD 09/24/16 [place]-3/Dha/Epa/Fish Oil (FISH OIL EC 1,000 MG SOFTGEL) 1 Each Capsule.dr, 2000 MG PO BID for 30 Days 2 pills in the morning 2 pills in the evening of what you have at home Prov:SMITH SADLER MD 09/24/16 Allergies Allergies: Coded Allergies: No Known Allergy (Unverified , 09/18/18) PMhx/Soc History of Surgery: Yes (back, CARDIAC STENT PLACEMENT) Anesthesia Reaction: No Hx Neurological Disorder: No Hx Respiratory Disorders: No Hx Cardiac Disorders: Yes (htn) Hx Psychiatric Problems: No Hx Miscellaneous Medical Probl: Yes (NEUROGENIC BLADDER) Hx Alcohol Use: No Hx Substance Use: No Hx Tobacco Use: Yes Smoking Status: Smoker,current status unk FmHx Family History: No diabetes Physical Exam Vitals Vital Signs Date Temp Pulse Resp B/P (MAP) Pulse Ox O2 O2 Flow FiO2 Time Delivery Rate 09/18/18 51 14 107/65 100 Nasal 2.0 16:37 (79) Cannula 09/18/18 Nasal 2 16:03 Cannula 09/18/18 97.4 55 19 94/53 (67) 97 15:13 Physical Exam General: Well developed, well nourished, no acute distress Head: Normocephalic, atraumatic. Eyes: Pupils equally reactive, EOM intact ENT: Moist mucous membranes Neck: Supple, no lymphadenopathy Respiratory: Lungs clear bilaterally, no distress Cardiovascular: RRR, no murmurs, rubs, or gallops Abdominal: Soft, non-tender, non-distended, no peritoneal signs : Deferred MSK: No edema, no unilateral swelling, 5/5 strength Neurologic: Alert and oriented, moving all extremities, normal speech, no focal weakness, no cerebellar signs Skin: No rash Psych: Normal mood Result Diagram: 09/18/18 1600 09/18/18 1600 Results 24 hrs Laboratory Tests Test 09/18/18 16:00 White Blood Count 5.3 10^3/ul Red Blood Count 4.56 10^6/ul Hemoglobin 13.6 g/dl Hematocrit 39.1 % Mean Corpuscular Volume 85.7 fl Mean Corpuscular Hemoglobin 29.8 pg Mean Corpuscular Hemoglobin Concent 34.8 g/dl Red Cell Distribution Width 13.9 % Platelet Count 171 10^3/UL Mean Platelet Volume 12.4 fl Immature Granulocytes % 0.200 % Neutrophils % 57.0 % Lymphocytes % 29.7 % Monocytes % 9.1 % Eosinophils % 3.4 % Basophils % 0.6 % Nucleated Red Blood Cells % 0.0 /100WBC Immature Granulocytes # 0.010 10^3/ul Neutrophils # 3.0 10^3/ul Lymphocytes # 1.6 10^3/ul Monocytes # 0.5 10^3/ul Eosinophils # 0.2 10^3/ul Basophils # 0.0 10^3/ul Nucleated Red Blood Cells # 0.0 10^3/ul Prothrombin Time 13.0 Sec Prothrombin Time Ratio 1.0 INR International Normalized Ratio 0.97 Activated Partial Thromboplast Time 33.8 Sec Sodium Level 143 mmol/L Potassium Level 4.6 mmol/L Chloride Level 107 mmol/L Carbon Dioxide Level 27 mmol/L Anion Gap 9 Blood Urea Nitrogen 12 mg/dl Creatinine 0.95 mg/dl Est Glomerular Filtrat Rate mL/min > 60 mL/min Glucose Level 91 mg/dl Calcium Level 8.6 mg/dl Troponin I < 0.012 ng/ml Current Medications Medications Dose Sig/Martita Start Time Status Last (Trade) Ordered Route PRN Stop Time Admin Dose Reason Admin Sodium 1,000 ml @ Q1H STAT 09/18/18 DC 09/18/18 Chloride 1,000 mls/hr IV 15:54 16:09 09/18/18 16:53 Aspirin 162 mg ONCE STAT 09/18/18 DC 09/18/18 (Aspirin) PO 15:54 16:09 09/18/18 15:56 Morphine 4 mg ONCE STAT 09/18/18 DC 09/18/18 Sulfate IV 15:54 16:09 (morphine) 09/18/18 15:56 Ondansetron 4 mg ONCE STAT 09/18/18 DC 09/18/18 HCl (Zofran IV 15:54 16:09 Inj) 09/18/18 15:56 IV Flush 10 ml STK-MED 09/18/18 DC 09/18/18 (NS 10 ml) ONCE .ROUTE 16:44 16:59 09/18/18 16:45 Sodium 100 ml @ ud STK-MED 09/18/18 DC 09/18/18 Chloride ONCE .ROUTE 16:44 17:00 09/18/18 16:45 Iohexol 100 ml @ ud STK-MED 09/18/18 DC 09/18/18 ONCE .ROUTE 16:44 17:00 09/18/18 16:45 Procedures/MDM EKG, MONITORS, & DIAGNOSTIC IMAGING: EKG: I reviewed and interpreted a 12-lead EKG. Rhythm: Normal sinus rhythm ST Changes: No contiguous ST segment elevations T waves: No contiguous T wave inversions Impression: No evidence of acute cardiac ischemia Repeat EKG: EKG: I reviewed and interpreted a 12-lead EKG. Rhythm: Normal sinus rhythm ST Changes: No contiguous ST segment elevations T waves: No contiguous T wave inversions Impression: No evidence of acute cardiac ischemia Chest x-ray: I reviewed and interpreted a 1 view of the chest Mediastinum: No enlargement Cardiac silhouette: No cardiomegaly Airspace: Clear lung rojo bilaterally without evidence of pneumothorax Bones: No evidence of fracture CTPA: IMPRESSION: No pulmonary embolism. No thoracic aortic aneurysm or dissection. No pneumonia. Coronary artery calcifications. Question peripancreatic adenopathy versus adjacent bowel loops. Suggest CT of the abdomen for more definitive diagnosis. PROCEDURES: None LAB INTERPRETATION: * neg trop MEDICAL DECISION MAKING: The patient's history, physical exam and clinical presentation is concerning for possible cardiogenic etiology and acute coronary syndrome. Additionally the patient has a recent international flight. Mild pleuritic component. Concern for possible PE. Moderate risk criteria is met. The patient does have a back component I am not convinced is consistent with dissection. Patient has had 2 days. He does not describe a ripping or tearing pain. Based on the patient's clinical exam and history and risk factors, I have a much lower clinical concern for acute aortic dissection, pneumothorax, pneumonia, cardiac tamponade HEART Score: 5 MACE Rate: 16.6% Shared Decision Making: We had a conversation regarding risk stratification, MACE rate, and the risks, benefits, alternatives of disposition planning options. Disposition planning: Admit ER COURSE: * Borderline BP, NTG held, ASA and morphine given. IVF provided. * CT negative * CP improved CONSULTATION: None DISPOSITION PLAN: Telemetry admission for management of chest pain to rule out acute coronary syndrome, serial enzymes, risk stratification and consideration of provocative testing CONSULTATION: Accepting care team and consultations: I discussed the current laboratory data, diagnostic imaging and emergency care provided. Admitting team: Dr. Corbin Admitting team indication: Insurance directed Departure Diagnosis: Primary Impression: Chest pain Chest pain type: unspecified Qualified Codes: R07.9 - Chest pain, unspecified Additional Impression: Coronary artery disease Coronary Disease-Associated Artery/Lesion type: unspecified vessel or lesion type [place] vs. transplanted heart: hoh heart Associated angina: with stable angina Qualified Codes: I25.118 - Atherosclerotic heart disease of hoh coronary artery with other forms of angina pectoris Condition: Stable ULIS KOROMA MD Sep 18, 2018 16:50
[2018-09-18] MEDS ORDERED: ACETAMINOPHEN 325 MG TAB PO PRN ×2 (17:30→18:00)
[2018-09-18] MEDS ORDERED: ONDANSETRON 4 MG INJ IV PRN ×2 (17:30→18:00)
[2018-09-18] MEDS ORDERED: SOD CHLORIDE 0.9% 1,000 ML IV SCH (17:43)
[2018-09-18] MEDS ORDERED: MAGNESIUM HYDROXIDE 30ML CUP PO PRN (18:00)
[2018-09-18] MEDS ORDERED: DOCUSATE SODIUM 100 MG CAP PO PRN (18:00)
[2018-09-18] MEDS ORDERED: NITROGLYCERIN (SL) 0.4 MG TAB SL PRN (18:00)
[2018-09-18] MEDS ORDERED: IOHEXOL 300MG/ML 150 ML BTL ONE (18:00)
[2018-09-18] MEDS ORDERED: morphine 2 MG INJ IV PRN (18:00)
[2018-09-18] MEDS ORDERED: NACL 0.9% 3 ML SYG IV SCH (18:00)
--- NOTE | 2018-09-18 18:05 | HP ---
Date/Time of Note Date/Time of Note DATE: 09/18/18 TIME: 17:49 Assessment/Plan VTE Prophylaxis SCD applied (from Nsg): Yes Pharmacological prophylaxis: LMWH Lines/Catheters IV Catheter Type (from Nrsg): Peripheral IV Assessment/Plan Assessment/Plan 1. Acute chest pain, rule out ACS - sounds more atypical in nature but given history of CAD with stent in the past will consult Dr. Grant, Cardiology, for further recommendations - ECHO ordered - negative initial trop and will trend - nitro, morphine, O2 PRN - aspirin on board - will check lipid panel and start on statin if indicated - A1c, and TSH ordered 2. Bradycardia - took norvasc and metoprolol this am which is most likely contributing to low HR 3. HTN - will hold BB and norvasc at this time given low BP and HR 4. Neurogenic bladder - will check bladder scans with vitals or if experiencing pressure. straight cath is >350cc residual 5. Recent travel - CTA negative for PE 6. ? peripancreatic adenopathy - seen on CTA and will check CT A/P to rule out any pathology 7. Diet - Cardiac 8. Disposition - Admit to telemetry for chest pain workup. Cardiology consultation placed for further recommendations Result Diagram: 09/18/18 1600 09/18/18 1600 Results 24hrs Laboratory Tests Test 09/18/18 16:00 White Blood Count 5.3 Red Blood Count 4.56 L Hemoglobin 13.6 L Hematocrit 39.1 L Mean Corpuscular Volume 85.7 Mean Corpuscular Hemoglobin 29.8 Mean Corpuscular Hemoglobin Concent 34.8 Red Cell Distribution Width 13.9 Platelet Count 171 Mean Platelet Volume 12.4 H Immature Granulocytes % 0.200 Neutrophils % 57.0 Lymphocytes % 29.7 Monocytes % 9.1 Eosinophils % 3.4 Basophils % 0.6 Nucleated Red Blood Cells % 0.0 Immature Granulocytes # 0.010 Neutrophils # 3.0 Lymphocytes # 1.6 Monocytes # 0.5 Eosinophils # 0.2 Basophils # 0.0 Nucleated Red Blood Cells # 0.0 Prothrombin Time 13.0 Prothrombin Time Ratio 1.0 INR International Normalized Ratio 0.97 Activated Partial Thromboplast Time 33.8 Sodium Level 143 Potassium Level 4.6 Chloride Level 107 Carbon Dioxide Level 27 Anion Gap 9 Blood Urea Nitrogen 12 Creatinine 0.95 Est Glomerular Filtrat Rate mL/min > 60 Glucose Level 91 Calcium Level 8.6 Troponin I < 0.012 HPI/ROS Admit Date/Time Admit Date/Time 09/18/18 Hx of Present Illness 53 yo M with PMH CAD s/p stent, HTN, and GERD presented to ED with worsening chest pain for the past 2-3 days. Patient admits to driving when the pain started and has been constant. Patient describes the pain as moderate in nature, sharp, located in the sternal area, radiating to back and neck. Associated with shortness of breath but denies any nausea, vomiting, dizziness, abdominal pain, weakness, or diarrhea. Admits to chronic constipation and urinary sx. He recently traveled at the beginning of the month from his country, [facility]. Denies any fevers, chills, cough, or sick contact. ROS All 12 systems reviewed and pertinent positives as per HPI. All others negative. Constitutional: No chills, No fatigue, No nausea Eyes: No discharge ENT: No congestion Respiratory: shortness of breath; No cough, No sputum, No wheezing Cardiovascular: chest pain; No edema, No lightheadedness, No palpitations Gastrointestinal: constipation; No pain, No diarrhea, No nausea, No vomiting Genitourinary: other (neurogenic bladder) Musculoskeletal: back pain, neck pain Skin: No laceration, No rash Neurologic: No confusion, No focal-weakness, No syncope Endocrine: no complaints Lymphatic: no complaints Psychological: nl mood/affect Immunologic: no complaints PMH/Family/Social Past Medical History Medical History: coronary artery disease, GERD, high cholesterol, hypertension Medications Current Medications Ondansetron HCl (Zofran Inj) 4 mg ER BRIDGE PRN IV NAUSEA/VOMITING; Start 09/18/18 at 17:30; Stop 09/19/18 at 17:29 Acetaminophen (Tylenol Tab) 650 mg ER BRIDGE PRN PO .MILD PAIN 1-3 OR TEMP; Start 09/18/18 at 17:30; Stop 09/19/18 at 17:29 Coded Allergies: No Known Allergy (Unverified , 09/18/18) Past Surgical History Past Surgical Hx: no surgical history, angioplasty Family History Significant Family History: heart disease, hypertension Social History Alcohol Use: rarely Smoking Status: Former smoker Drug Use: none Exam/Review of Systems Vital Signs Vitals Vital Signs Date Temp Pulse Resp B/P (MAP) Pulse Ox O2 O2 Flow FiO2 Time Delivery Rate 6/12/19 51 14 107/65 100 Nasal 2.0 16:37 (79) Cannula 09/18/18 97.4 15:13 Exam Exam General: Patient currently lying in bed in no acute distress, answering questions appropriately HEENT: Atraumatic, normocephalic. The pupils are equal, round and reactive. Extraocular motor are intact Neck: Supple with full range of motion. No rigidity or meningismus Chest: Nontender Lungs: Clear to auscultation bilaterally no crackles rales or wheezing Heart: Normal S1-S2, Regular rhythm and bradycardia. No murmur, S3, or S4 Abdomen: Soft , nontender, nondistended , bowel sounds are present. No guarding no rebound tenderness , No masses or organomegaly. No costovertebral temporal angle mass Extremities: Normal to inspection, no edema no cyanosis Neurologic: Normal mental status, speech normal, cranial nerves II through XII are intact, motor and sensory are intact, Additional Comments Home medications reviewed PROCEDURE: XR Chest AP portable CLINICAL INDICATION: Chest pain TECHNIQUE: An AP portable radiograph of the chest was submitted. COMPARISON: 09/23/2016 FINDINGS: Support Hardware: None Cardiovascular: The cardiovascular silhouette appears unremarkable. Lung Parker: The lung parker appear clear with no nodule, alveolar infiltrate, or interstitial prominence evident. Pleural Spaces: No pneumothorax or pleural effusion is identified. Osseous Structures: Moderate degenerative enthesopathy of the thoracic spine is noted. Soft Tissues: The soft tissues appear unremarkable. IMPRESSION: 1. Stable and unremarkable chest without evidence of active cardiopulmonary disease. 2. Moderate diffuse degenerative enthesopathy of the thoracic spine. Physician Surya Date Time Electronically viewed and signed by Physician Sruya on 09/18/2018 16:17 PROCEDURE: CTA Chest. CLINICAL INDICATION: Pulmonary embolism TECHNIQUE: The study was performed utilizing a multidetector CT scanner. Direct spiral 1 axial sections were obtained from the thoracic inlet to the upper abdomen with the use of 100 cc of [id number]-[id number] nonionic intravenous contrast material and reformatted at 3. Coronal, sagittal and 3-D angiographic reformations were obtained. The images were reviewed on a PACS workstation. CT D I 34 mCi Dose 651 mGy/cm Individualized dose optimization technique was used for the performance of this exam. This included 1. Automated exposure control. 2. Adjustment of the mA and / or kV according to the patient's size. 3. Use of iterative reconstruction technique. DICOM images are included COMPARISON: No prior studies are available for comparison. FINDINGS: There is no central or peripheral pulmonary embolism. Main pulmonary artery is not enlarged measuring 29 mm in diameter. There are coronary artery calcifications. Thoracic aorta is normal with no dissection or aneurysm. No lung infiltrate or mass is seen. There is no hilar or mediastinal adenopathy or mass. No pleural or pericardial effusion is visualized. There is no pneumothorax. No adrenal masses seen. There is questionable peripancreatic lymphadenopathy. This may represent bowel loops. No other upper abdominal mass is detected. The osseous structures appear normal. IMPRESSION: No pulmonary embolism. No thoracic aortic aneurysm or dissection. No pneumonia. Coronary artery calcifications. Question peripancreatic adenopathy versus adjacent bowel loops. Suggest CT of the abdomen for more definitive diagnosis. .Elmer Thompson MD, MD Date Time Electronically viewed and signed by .Elmer Thompson MD, MD on 09/18/2018 17:07 FLORA ALVAREZ MD Sep 18, 2018 18:04
[2018-09-18 22:15] VITALS: BP 104/59; PULSE 44; RESP 18; Ht 170.2 cm; Wt 90.0 kg
[2018-09-18 22:19] VITALS: PULSE 67
[2018-09-18 22:20] VITALS: PULSE 44
[2018-09-18 22:38] VITALS: PULSE 39
[2018-09-18] MEDS ORDERED: LIDOCAINE 2% JELLY 5 ML TOP PRN (23:30)
[2018-09-18] MEDS ORDERED: ATROPINE 1 MG/10 ML SYRINGE IV PRN (23:30)
[2018-09-19] VITALS (7 sets, daily range): BP systolic 97–105; BP diastolic 52–61; PULSE 43–61; RESP 16–17
[2018-09-19] MEDS ORDERED: PANTOPRAZOLE (EC) 40 MG TAB PO SCH (06:00)
[2018-09-19] MEDS ORDERED: ASPIRIN (EC) 81 MG TAB PO SCH (09:00)
[2018-09-19] MEDS ORDERED: KETOROLAC 15 MG INJ IV PRN (09:00)
[2018-09-19] MEDS ORDERED: ENOXAPARIN 40 MG/0.4 ML SYG SC SCH (09:00)
[2018-09-19] MEDS ORDERED: METOCLOPRAMIDE 10 MG INJ IV SCH (12:00)
--- NOTE | 2018-09-19 13:00 | PN ---
Date/Time of Note Date/Time of Note DATE: 09/19/18 TIME: 12:55 Assessment/Plan VTE Prophylaxis Risk score (from Ns)>0 risk: 3 SCD applied (from [facility]): No SCD contraindicated: low risk/ambulating Pharmacological prophylaxis: NA/contraindicated Pharm contraindication: low risk/ambulating Lines/Catheters IV Catheter Type (from [facility]): Peripheral IV Urinary Cath still in place: No Assessment/Plan Assessment/Plan 1. Acute chest pain- resolved - Cardiology consultation appreciated and cleared for discharge home - ECHO results noted - negative serial trops - nitro, morphine, O2 PRN - lipid panel discussed with patient 2. Bradycardia - holding home meds 3. HTN - stable off medications 4. Neurogenic bladder - continue self cath 5. Recent travel - CTA negative for PE 6. Neurogenic bowel 7. Disposition - Medically stable for discharge home. Cleared by cardiology for discharge Result Diagram: 09/19/18 0350 09/19/18 0350 Results 24hrs Laboratory Tests Test 09/18/18 16:00 09/18/18 19:02 09/18/18 22:50 09/19/18 03:50 White Blood Count 5.3 4.3 L Red Blood Count 4.56 L 4.49 L Hemoglobin 13.6 L 13.5 L Hematocrit 39.1 L 38.2 L Mean Corpuscular 85.7 85.1 Volume Mean Corpuscular 29.8 30.1 Hemoglobin Mean Corpuscular 34.8 35.3 Hemoglobin Concent Red Cell 13.9 14.1 Distribution Width Platelet Count 171 144 Mean Platelet Volume 12.4 H 12.5 H Immature 0.200 0.000 L Granulocytes % Neutrophils % 57.0 47.0 Lymphocytes % 29.7 38.0 Monocytes % 9.1 10.3 Eosinophils % 3.4 4.2 Basophils % 0.6 0.5 Nucleated Red Blood 0.0 0.0 Cells % Immature 0.010 0.000 Granulocytes # Neutrophils # 3.0 2.0 Lymphocytes # 1.6 1.6 Monocytes # 0.5 0.4 Eosinophils # 0.2 0.2 Basophils # 0.0 0.0 Nucleated Red Blood 0.0 0.0 Cells # Prothrombin Time 13.0 Prothrombin Time 1.0 Ratio INR International 0.97 Normalized Ratio Activated 33.8 Partial Thromboplast Time Sodium Level 143 141 Potassium Level 4.6 4.2 Chloride Level 107 112 H Carbon Dioxide Level 27 25 Anion Gap 9 4 L Blood Urea Nitrogen 12 12 Creatinine 0.95 0.85 Est Glomerular > 60 > 60 Filtrat Rate mL/min Glucose Level 91 133 # Calcium Level 8.6 8.4 Troponin I < 0.012 < 0.012 < 0.012 Hemoglobin A1c 5.1 Creatine Kinase 87 89 Creatine Kinase 0.5 0.5 Index Creatinine Kinase MB 0.47 0.44 (Mass) Magnesium Level 2.2 Triglycerides Level 127 Cholesterol Level 226 H LDL Cholesterol, 172 Calculated HDL Cholesterol 29 Cholesterol/HDL 7.7 Ratio Thyroid Stimulating 0.913 Hormone (TSH) Subjective 24 Hr Interval Summary Free Text/Dictation Patient doing well and states chest discomfort has resolved. No acute overnight events. Does admit to pain in left foot that is "deep" but denies any injury or recent fall. Exam/Review of Systems Exam Vitals Vital Signs Date Temp Pulse Resp B/P (MAP) Pulse Ox O2 O2 Flow FiO2 Time Delivery Rate 09/19/18 98.0 61 16 103/61 98 11:41 (75) 09/18/18 Nasal 21:51 Cannula 09/18/18 2.0 20:29 Intake and Output 09/18/18 09/18/18 09/19/18 1515:00 23:00 07:00 IntakeIntake Total 500 ml BalanceBalance 500 ml Exam General: Patient currently lying in bed in no acute distress, answering questions appropriately Neck: Supple Chest: Nontender Lungs: Clear to auscultation bilaterally no crackles rales or wheezing Heart: Normal S1-S2, Regular rhythm and bradycardia. No murmur, S3, or S4 Abdomen: Soft , nontender, nondistended , bowel sounds are present. No guarding no rebound tenderness Extremities: Normal to inspection, no edema no cyanosis. mild swelling L lateral malleolus but no pain with palpation Results Results 24hrs Laboratory Tests Test 09/18/18 16:00 09/18/18 19:02 09/18/18 22:50 09/19/18 03:50 White Blood Count 5.3 4.3 L Red Blood Count 4.56 L 4.49 L Hemoglobin 13.6 L 13.5 L Hematocrit 39.1 L 38.2 L Mean Corpuscular 85.7 85.1 Volume Mean Corpuscular 29.8 30.1 Hemoglobin Mean Corpuscular 34.8 35.3 Hemoglobin Concent Red Cell 13.9 14.1 Distribution Width Platelet Count 171 144 Mean Platelet Volume 12.4 H 12.5 H Immature 0.200 0.000 L Granulocytes % Neutrophils % 57.0 47.0 Lymphocytes % 29.7 38.0 Monocytes % 9.1 10.3 Eosinophils % 3.4 4.2 Basophils % 0.6 0.5 Nucleated Red Blood 0.0 0.0 Cells % Immature 0.010 0.000 Granulocytes # Neutrophils # 3.0 2.0 Lymphocytes # 1.6 1.6 Monocytes # 0.5 0.4 Eosinophils # 0.2 0.2 Basophils # 0.0 0.0 Nucleated Red Blood 0.0 0.0 Cells # Prothrombin Time 13.0 Prothrombin Time 1.0 Ratio INR International 0.97 Normalized Ratio Activated 33.8 Partial Thromboplast Time Sodium Level 143 141 Potassium Level 4.6 4.2 Chloride Level 107 112 H Carbon Dioxide Level 27 25 Anion Gap 9 4 L Blood Urea Nitrogen 12 12 Creatinine 0.95 0.85 Est Glomerular > 60 > 60 Filtrat Rate mL/min Glucose Level 91 133 # Calcium Level 8.6 8.4 Troponin I < 0.012 < 0.012 < 0.012 Hemoglobin A1c 5.1 Creatine Kinase 87 89 Creatine Kinase 0.5 0.5 Index Creatinine Kinase MB 0.47 0.44 (Mass) Magnesium Level 2.2 Triglycerides Level 127 Cholesterol Level 226 H LDL Cholesterol, 172 Calculated HDL Cholesterol 29 Cholesterol/HDL 7.7 Ratio Thyroid Stimulating 0.913 Hormone (TSH) Medications Medication Current Medications Aspirin (Halfprin) 81 mg DAILY PO Last administered on 09/19/18at 08:49; Admin Dose 81 MG; Start 09/19/18 at 09:00 Nitroglycerin (Nitroglycerin (Sl Tab) 0.4 Mg) 1 tab Q5M PRN SL CHEST PAIN; Start 09/18/18 at 18:00 Morphine Sulfate (morphine) 2 mg Q2H PRN IV PAIN LEVEL 4-6; Start 09/18/18 at 18:00 IV Flush (NS 3 ml) 3 ml PER PROTOCOL IV ; Start 09/18/18 at 18:00 Ondansetron HCl (Zofran Inj) 4 mg Q6H PRN IV NAUSEA/VOMITING; Start 09/18/18 at 18:00 Acetaminophen (Tylenol Tab) 650 mg Q6H PRN PO .PAIN 1-3 OR TEMP; Start 09/18/18 at 18:00 Docusate Sodium (Colace) 100 mg Q12H PRN PO .CONSTIPATION; Start 09/18/18 at 18:00 Magnesium Hydroxide (Milk Of Mag) 30 ml DAILY PRN PO .CONSTIPATION; Start 09/18/18 at 18:00 Pantoprazole (Protonix Tab) 40 mg DAILY@06 PO Last administered on 09/19/18at 05:24; Admin Dose 40 MG; Start 09/19/18 at 06:00 Enoxaparin Sodium (Lovenox) 40 mg DAILY SC Last administered on 09/19/18at 09:17; Admin Dose 40 MG; Start 09/19/18 at 09:00 Lidocaine (Xylocaine 2% Jelly) 1 applic BEDSIDE MEDICATION PRN TOP straight cath; Start 09/18/18 at 23:30 Atropine Sulfate (Atropine (Syringe)) 0.5 mg BEDSIDE MEDICATION PRN IV LOW HEART RATE; Start 09/18/18 at 23:30 Ketorolac Tromethamine (Toradol) 15 mg Q6H PRN IV PAIN Last administered on 09/19/18at 08:49; Admin Dose 15 MG; Start 09/19/18 at 09:00; Stop 09/22/18 at 08:59 Atorvastatin Calcium (Lipitor) 40 mg HS PO ; Start 09/19/18 at 21:00 Metoclopramide HCl (Reglan) 10 mg Q6 IV Last administered on 09/19/18at 11:50; Admin Dose 10 MG; Start 09/19/18 at 12:00 FLORA ALVAREZ MD Sep 19, 2018 13:00
[2018-09-19] MEDS ORDERED: ATOR40TA68 PO (13:04)
[2018-09-19] MEDS ORDERED: HYDR-4011 PO (13:04)
[2018-09-19] MEDS ORDERED: PANT40TA4 PO (13:04)
--- NOTE | 2018-09-19 13:06 | PDOCDIS ---
Discharge Instructions DIAGNOSIS Discharge Diagnosis 1. Acute chest pain, musculoskeletal 2. Bradycardia- medication induced 3. HTN- stable 4. Neurogenic bladder 5. Recent travel CONDITION [id number] Patient Condition: [id number] Stable HOME CARE INSTRUCTIONS: [id number] Diet Instructions: [id number] Low Fat /Cholesterol ACTIVITY: [id number] Activity Restrictions: [id number] No Restrictions FOLLOW UP/APPOINTMENTS Follow-up Plan 1. Follow up with your primary care physician in 1-2 weeks 2. Take Lipitor daily to help decrease your LDL and cholesterol levels. Also important to follow a low cholesterol, low fat diet 3. Do not take Amlodipine or Metoprolol since your blood pressure and heart rate were both running low 4. If experiencing any concerning symptoms, please go to the nearest emergency department 5. Increase physical exercise as tolerated FLORA ALVAREZ MD Sep 19, 2018 13:06
--- NOTE | 2018-09-19 13:16 | RADRPT ---
Echocardiogram Report Patient Name: Padilla ROCHAent ID: [id number] : 1965 (53y 4m)Study Date: 09/19/2018 8:45:53 AM Gender: MAccession #: [id number] Tech: Mary Barone RUST Location: [facility] Ref.Physician: FLORA ALVAREZ Height(Cm): BSA: Weight(Kg): Quality: AdequateOrder Physician: FLORA ALVAREZ Account #: Procedures: Echocardiographic Report: Transthoracic echocardiogram with complete 2D, M-Mode, and doppler examination. Indications: Evaluate Left Ventricular function, and Chest Pain. Measurements: 2D/M Mode Doppler Measurement Value Normal Range Measurement Value Normal Range LVIDd 2D 4.9 [ 4.2 - 5.8 ] cm AV Peak Toñito 1.8 [ 100.0 - 170.0 ] cm/sec LVIDs 2D 2.4 [ 2.5 - 4.0 ] cm AV Peak PG 13.0 [ 2.0 - 9.0 ] mmHg LVPWd 2D 1.1 [ 0.6 - 1.0 ] cm LVOT Peak Toñito 1.3 [ 70.0 - 110.0 ] cm/sec IVSd 2D 1.1 [ 0.6 - 1.0 ] cm LVOT Peak PG 7.0 [ 2.0 - 6.0 ] mmHg IVS/LVPW 2D 1.1 ratio MV E Peak Toñito 0.8 [ 60.0 - 130.0 ] cm/sec AoR Diam 2D 3.2 [ 2.6 - 3.4 ] cm MV A Peak Toñito 0.9 [ 100.0 - 120.0 ] cm/sec LA/Ao 2D 1 ratio MV E/A 0.8 [ 0.8 - 1.5 ] ratio LA Dimen 2D 3.7 [ 3.0 - 4.0 ] cm MV Decel Time 162 [ 104 - 258 ] msec Lat E` Toñito 0.1 [ 10.0 - 15.0 ] cm/sec MV E/A 0.8 [ 0.8 - 1.5 ] ratio TR Peak Toñito 2.3 [ 100.0 - 280.0 ] cm/sec TR Peak PG 22.0 mmHg RVSP 25.0 [ 10.0 - 36.0 ] mmHg RA Pressure 3.0 mmHg Findings: Left Ventricle: Normal left ventricular systolic function. Normal left ventricular cavity size. Mild concentric left ventricular hypertrophy. Ejection fraction is visually estimated at 65 %. Tissue Doppler/Mitral Doppler indices are consistent with impaired relaxation (Stage I diastolic dysfunction). Right Ventricle: Normal right ventricular size. Normal right ventricular systolic function. Left Atrium: The left atrium is normal in size. Right Atrium: The right atrium is normal in size. Mitral Valve: Normal appearance of the mitral valve. Mild mitral leaflet calcification. Mild mitral valve regurgitation. Aortic Valve: Normal appearance of the aortic valve. No significant aortic stenosis or insufficiency. Tricuspid Valve: Normal appearance of the tricuspid valve. The estimated Peak RVSP is 25 mmHg. There is trace tricuspid regurgitation. Pulmonic Valve: Pulmonic valve not well visualized. Pericardium: Normal pericardium with no significant pericardial effusion. Aorta: Normal aortic root. IVC: Normal size and normal respiratory collapse consistent with normal right atrial pressure. Conclusions: Normal left ventricular systolic function. Normal left ventricular cavity size. Mild concentric left ventricular hypertrophy. Ejection fraction is visually estimated at 65 %. Tissue Doppler/Mitral Doppler indices are consistent with impaired relaxation (Stage I diastolic dysfunction). Normal right ventricular size. Normal right ventricular systolic function. The left atrium is normal in size. The right atrium is normal in size. Mild mitral valve regurgitation. No significant valvular stenosis or regurgitation seen of remaining visualized valves. Normal pericardium with no significant pericardial effusion. Electronically Signed By: Elian Grant 2018-09-19 13:16:00 PDT
--- NOTE | 2018-09-19 13:22 | CONS ---
Assessment/Plan Assessment/Plan Hospital Course (Demo Recall) Chest, shoulder, back and abdominal pain CAD with history of PCI 2016 Preserved left ventricular ejection fraction Mild mitral valve regurgitation Patient symptoms including chest, back, shoulder, neck and abdominal pain. Symptoms are nonexertional. Serial cardiac enzymes are negative, ECG with no significant ischemic abnormalities, echocardiogram with preserved left ventricular ejection fraction CT scan with no evidence of pulmonary emboli or aortic dissection Symptoms appear atypical for cardiac ischemia. Furthermore, symptoms have since improved and he denies any current chest pain but still complains of his back, shoulder and neck pain No further inpatient cardiac work-up needed at the current time Consultation Date/Type/Reason Admit Date/Time 09/18/18 Type of Consult Cardiology Reason for Consultation Chest pain Date/Time of Note DATE: 09/19/18 TIME: 13:17 Hx of Present Illness This is a 53-year-old male past medical history of CAD status post PCI in 2016, who presents with shoulder, back and chest pain. Pain began when patient was driving. Pain is burning like and sharp at times. He has multiple different areas of pain including his neck, bilateral shoulders, back, chest and abdomen. Pain is worse with pushing on the chest wall. Patient had exacerbation of discomfort yesterday associate with shortness of breath that is why he came to the emergency room. His chest discomfort has since resolved. He still complains of back, shoulder pain. Denies exertional chest pain or shortness of breath. He denies any dizziness or lightheadedness. 12 point review of system was performed with all pertinent positives and negatives mentioned above and all else is negative Past Medical History Medical History: coronary artery disease, high cholesterol Home Meds Active Scripts Hydrocodone/Acetaminophen ([place] 5-325 Tablet) 1 Each Tablet, 1 EACH PO Q6 PRN for p for 5 Days, #20 TAB Prov:FLORA ALVAREZ MD 09/19/18 Pantoprazole* (Pantoprazole*) 40 Mg Tablet., 40 MG PO DAILY@06 for 30 Days, #30 TAB Prov:FLORA ALVAREZ MD 09/19/18 Atorvastatin* (Atorvastatin*) 40 Mg Tablet, 40 MG PO HS for 30 Days, #30 TAB 1 Refill Prov:FLORA ALVAREZ MD 09/19/18 Reported Medications Aspirin (Low Dose Aspirin) 81 Mg Tablet.dr, 81 MG PO DAILY, #30 TAB 09/18/18 Discontinued Reported Medications Metoprolol Tartrate* (Lopressor*) 25 Mg Tab, 25 MG PO DAILY, #60 TAB 09/18/18 Amlodipine Besylate* (Amlodipine Besylate*) 2.5 Mg Tablet, 2.5 MG PO DAILY, #30 TAB 09/18/18 Green Tea [place] Extract (Green Tea) 1 Each Capsule, 1 EACH PO, CAP 09/23/16 Cholestyramine* (Cholestyramine* Powder) 378 Gm Powder, 4 GM PO QID, EA 09/23/16 Aspirin* (Aspirin* EC) 81 Mg Tablet.dr, 81 MG PO DAILY, TAB 09/23/16 Hydrocodone/Acetaminophen ([place] 5-325 Tablet) 1 Each Tablet, 1 EACH PO, TAB 09/23/16 Ibuprofen* (Ibuprofen*) 800 Mg Tab, 800 MG PO Q6H PRN for PAIN, TAB 09/23/16 Discontinued Scripts Cefixime (Suprax) 400 Mg Capsule, 400 MG PO DAILY, #7 CAP Prov:KIERA LUZ PA-C 04/25/18 Levofloxacin* (Levaquin*) 500 Mg Tablet, 500 MG PO DAILY for 7 Days, TAB Prov:ELICIA CORREA MD 02/08/18 Naproxen* (Naprosyn*) 500 Mg Tablet, 500 MG PO BID PRN for PAIN AND/OR INFLAMMATION for 10 Days, #20 TAB Prov:JANICE,CAT 02/07/18 Cefixime (Suprax) 400 Mg Capsule, 400 MG PO DAILY for 14 Days, #14 CAP Prov:JANICE,CAT 02/07/18 Naproxen* (Naprosyn*) 500 Mg Tablet, 500 MG PO BID PRN for PAIN AND/OR INFL AMMATION, #30 TAB Prov:NISH MILLAN PA-C 08/14/17 Hydrocodone/Acetaminophen ([place] 5-325 Tablet) 1 Each Tablet, 1 TAB PO Q6H PRN for PAIN, #7 TAB Prov:NISH MILLAN PA-C 08/14/17 Methylprednisolone* (Medrol* DOSE PACK) 4 Mg/Dose-Pack Tab.ds.pk, 4 MG PO . DIRECTED, #1 PACKET Prov:NISH MILLAN PA-C 08/14/17 Valsartan (Valsartan) 80 Mg Tablet, 40 MG PO QHS for 30 Days, TAB 1 Refill Prov:SMITH SADLER MD 09/24/16 Metoprolol Succinate* (Toprol XL*) 25 Mg Tab.sr.24h, 25 MG PO BID for 30 Days, 1 Refill Prov:SMITH SADLER MD 09/24/16 Atorvastatin* (Atorvastatin*) 40 Mg Tablet, 80 MG PO AC DINNER for 30 Days, TAB Prov:SMITH SADLER MD 09/24/16 [place]-3/Dha/Epa/Fish Oil (FISH OIL EC 1,000 MG SOFTGEL) 1 Each Capsule.dr, 2000 MG PO BID for 30 Days 2 pills in the morning 2 pills in the evening of what you have at home Prov:SMITH SADLER MD 09/24/16 Medications Current Medications Aspirin (Halfprin) 81 mg DAILY PO Last administered on 09/19/18at 08:49; Admin Dose 81 MG; Start 09/19/18 at 09:00 Nitroglycerin (Nitroglycerin (Sl Tab) 0.4 Mg) 1 tab Q5M PRN SL CHEST PAIN; Start 09/18/18 at 18:00 Morphine Sulfate (morphine) 2 mg Q2H PRN IV PAIN LEVEL 4-6; Start 09/18/18 at 18:00 IV Flush (NS 3 ml) 3 ml PER PROTOCOL IV ; Start 09/18/18 at 18:00 Ondansetron HCl (Zofran Inj) 4 mg Q6H PRN IV NAUSEA/VOMITING; Start 09/18/18 at 18:00 Acetaminophen (Tylenol Tab) 650 mg Q6H PRN PO .PAIN 1-3 OR TEMP; Start 09/18/18 at 18:00 Docusate Sodium (Colace) 100 mg Q12H PRN PO .CONSTIPATION; Start 09/18/18 at 18:00 Magnesium Hydroxide (Milk Of Mag) 30 ml DAILY PRN PO .CONSTIPATION; Start 09/18/18 at 18:00 Pantoprazole (Protonix Tab) 40 mg DAILY@06 PO Last administered on 09/19/18at 05:24; Admin Dose 40 MG; Start 09/19/18 at 06:00 Enoxaparin Sodium (Lovenox) 40 mg DAILY SC Last administered on 09/19/18at 09:17; Admin Dose 40 MG; Start 09/19/18 at 09:00 Lidocaine (Xylocaine 2% Jelly) 1 applic BEDSIDE MEDICATION PRN TOP straight cath; Start 09/18/18 at 23:30 Atropine Sulfate (Atropine (Syringe)) 0.5 mg BEDSIDE MEDICATION PRN IV LOW HEART RATE; Start 09/18/18 at 23:30 Ketorolac Tromethamine (Toradol) 15 mg Q6H PRN IV PAIN Last administered on 09/19/18at 08:49; Admin Dose 15 MG; Start 09/19/18 at 09:00; Stop 09/22/18 at 08:59 Atorvastatin Calcium (Lipitor) 40 mg HS PO ; Start 09/19/18 at 21:00 Metoclopramide HCl (Reglan) 10 mg Q6 IV Last administered on 09/19/18at 11:50; Admin Dose 10 MG; Start 09/19/18 at 12:00 Allergies: Coded Allergies: No Known Allergy (Unverified , 09/19/18) Past Surgical History Past Surgical Hx: angioplasty Social History Alcohol Use: rarely Smoking Status: Former smoker Drug Use: none Exam/Review of Systems Vital Signs Vitals Vital Signs Date Temp Pulse Resp B/P (MAP) Pulse Ox O2 O2 Flow FiO2 Time Delivery Rate 09/19/18 98.0 61 16 103/61 98 11:41 (75) 09/18/18 Nasal 21:51 Cannula 09/18/18 2.0 20:29 Intake and Output 09/18/18 09/18/18 09/19/18 1515:00 23:00 07:00 IntakeIntake Total 500 ml BalanceBalance 500 ml Exam Constitutional: alert, oriented (No apparent distress) Head: normocephalic Respiratory: clear to auscultation, normal air movement Cardiovascular: regular rate and rhythm (S1-S2 heard, no murmurs appreciated) Gastrointestinal: soft, non-tender, bowel sounds Extremities: other (No significant edema) Labs Result Diagram: 09/19/18 0350 09/19/18 0350 Results 24hrs Laboratory Tests Test 09/18/18 16:00 09/18/18 19:02 09/18/18 22:50 09/19/18 03:50 White Blood Count 5.3 4.3 L Red Blood Count 4.56 L 4.49 L Hemoglobin 13.6 L 13.5 L Hematocrit 39.1 L 38.2 L Mean Corpuscular 85.7 85.1 Volume Mean Corpuscular 29.8 30.1 Hemoglobin Mean Corpuscular 34.8 35.3 Hemoglobin Concent Red Cell 13.9 14.1 Distribution Width Platelet Count 171 144 Mean Platelet Volume 12.4 H 12.5 H Immature 0.200 0.000 L Granulocytes % Neutrophils % 57.0 47.0 Lymphocytes % 29.7 38.0 Monocytes % 9.1 10.3 Eosinophils % 3.4 4.2 Basophils % 0.6 0.5 Nucleated Red Blood 0.0 0.0 Cells % Immature 0.010 0.000 Granulocytes # Neutrophils # 3.0 2.0 Lymphocytes # 1.6 1.6 Monocytes # 0.5 0.4 Eosinophils # 0.2 0.2 Basophils # 0.0 0.0 Nucleated Red Blood 0.0 0.0 Cells # Prothrombin Time 13.0 Prothrombin Time 1.0 Ratio INR International 0.97 Normalized Ratio Activated 33.8 Partial Thromboplast Time Sodium Level 143 141 Potassium Level 4.6 4.2 Chloride Level 107 112 H Carbon Dioxide Level 27 25 Anion Gap 9 4 L Blood Urea Nitrogen 12 12 Creatinine 0.95 0.85 Est Glomerular > 60 > 60 Filtrat Rate mL/min Glucose Level 91 133 # Calcium Level 8.6 8.4 Troponin I < 0.012 < 0.012 < 0.012 Hemoglobin A1c 5.1 Creatine Kinase 87 89 Creatine Kinase 0.5 0.5 Index Creatinine Kinase MB 0.47 0.44 (Mass) Magnesium Level 2.2 Triglycerides Level 127 Cholesterol Level 226 H LDL Cholesterol, 172 Calculated HDL Cholesterol 29 Cholesterol/HDL 7.7 Ratio Thyroid Stimulating 0.913 Hormone (TSH) Imaging Imaging ECG sinus bradycardia, normal QRS duration, no significant ischemic ST abnormalities Medications Medications Current Medications Aspirin (Halfprin) 81 mg DAILY PO Last administered on 09/19/18at 08:49; Admin Dose 81 MG; Start 09/19/18 at 09:00 Nitroglycerin (Nitroglycerin (Sl Tab) 0.4 Mg) 1 tab Q5M PRN SL CHEST PAIN; Start 09/18/18 at 18:00 Morphine Sulfate (morphine) 2 mg Q2H PRN IV PAIN LEVEL 4-6; Start 09/18/18 at 18:00 IV Flush (NS 3 ml) 3 ml PER PROTOCOL IV ; Start 09/18/18 at 18:00 Ondansetron HCl (Zofran Inj) 4 mg Q6H PRN IV NAUSEA/VOMITING; Start 09/18/18 at 18:00 Acetaminophen (Tylenol Tab) 650 mg Q6H PRN PO .PAIN 1-3 OR TEMP; Start 09/18/18 at 18:00 Docusate Sodium (Colace) 100 mg Q12H PRN PO .CONSTIPATION; Start 09/18/18 at 18:00 Magnesium Hydroxide (Milk Of Mag) 30 ml DAILY PRN PO .CONSTIPATION; Start 09/18/18 at 18:00 Pantoprazole (Protonix Tab) 40 mg DAILY@06 PO Last administered on 09/19/18at 05:24; Admin Dose 40 MG; Start 09/19/18 at 06:00 Enoxaparin Sodium (Lovenox) 40 mg DAILY SC Last administered on 09/19/18at 09:17; Admin Dose 40 MG; Start 09/19/18 at 09:00 Lidocaine (Xylocaine 2% Jelly) 1 applic BEDSIDE MEDICATION PRN TOP straight cath; Start 09/18/18 at 23:30 Atropine Sulfate (Atropine (Syringe)) 0.5 mg BEDSIDE MEDICATION PRN IV LOW HEART RATE; Start 09/18/18 at 23:30 Ketorolac Tromethamine (Toradol) 15 mg Q6H PRN IV PAIN Last administered on 09/19/18at 08:49; Admin Dose 15 MG; Start 09/19/18 at 09:00; Stop 09/22/18 at 08:59 Atorvastatin Calcium (Lipitor) 40 mg HS PO ; Start 09/19/18 at 21:00 Metoclopramide HCl (Reglan) 10 mg Q6 IV Last administered on 09/19/18at 11:50; Admin Dose 10 MG; Start 09/19/18 at 12:00 Elian Grant DO Sep 19, 2018 13:22
--- NOTE | 2018-09-19 16:45 | DS ---
Date/Time of Note Date/Time of Note DATE: 09/19/18 TIME: 16:41 Discharge Summary Admission/Discharge Info Admit Date/Time Sep 18, 2018 at 17:17 Discharge Date/Time Sep 19, 2018 at 14:48 Discharge Diagnosis 1. Acute chest pain, musculoskeletal 2. Bradycardia- medication induced 3. HTN- stable 4. Neurogenic bladder 5. Recent travel Patient Condition: Stable Consults Cardiology- Dr. Rudy Robledo of Present Illness 53 yo M with PMH CAD s/p stent, HTN, and GERD presented to ED with worsening chest pain for the past 2-3 days. Patient admits to driving when the pain started and has been constant. Patient describes the pain as moderate in nature, sharp, located in the sternal area, radiating to back and neck. Associated with shortness of breath but denies any nausea, vomiting, dizziness, abdominal pain, weakness, or diarrhea. Admits to chronic constipation and urinary sx. He recently traveled at the beginning of the month from his country, [facility]. Denies any fevers, chills, cough, or sick contact. Hospital Course Patient was admitted for ACS workup and Cardiology was consulted. Patient was started on pain control and PPI. Patients symptoms improved and cardiac workup was negative for ACS given negative trops, EKG without acute changes, and ECHO without any structural abnormalities. CTA was performed which ruled out pulmonary embolism given patients recent travel. Patient was found with abnormality in abdominal area and CT A/P was performed which showed ileus vs partial SBO which was consistent with patients history of neurogenic bowels. Patients home medications were held given bradycardia and hypotension. Patient was started on Lipitor given elevated LDL/cholesterol levels. Patient was discharge home in stable condition. Home Meds Active Scripts Hydrocodone/Acetaminophen ([place] 5-325 Tablet) 1 Each Tablet, 1 EACH PO Q6 PRN for p for 5 Days, #20 TAB Prov:FLORA ALVAREZ MD 09/19/18 Pantoprazole* (Pantoprazole*) 40 Mg Tablet., 40 MG PO DAILY@06 for 30 Days, #30 TAB Prov:FLORA ALVAREZ MD 09/19/18 Atorvastatin* (Atorvastatin*) 40 Mg Tablet, 40 MG PO HS for 30 Days, #30 TAB 1 Refill Prov:FLORA ALVAREZ MD 09/19/18 Reported Medications Aspirin (Low Dose Aspirin) 81 Mg Tablet., 81 MG PO DAILY, #30 TAB 6/12/19 Discontinued Reported Medications Metoprolol Tartrate* (Lopressor*) 25 Mg Tab, 25 MG PO DAILY, #60 TAB 09/18/18 Amlodipine Besylate* (Amlodipine Besylate*) 2.5 Mg Tablet, 2.5 MG PO DAILY, #30 TAB 09/18/18 Green Tea [place] Extract (Green Tea) 1 Each Capsule, 1 EACH PO, CAP 09/23/16 Cholestyramine* (Cholestyramine* Powder) 378 Gm Powder, 4 GM PO QID, EA 09/23/16 Aspirin* (Aspirin* EC) 81 Mg Tablet.dr, 81 MG PO DAILY, TAB 09/23/16 Hydrocodone/Acetaminophen ([place] 5-325 Tablet) 1 Each Tablet, 1 EACH PO, TAB 09/23/16 Ibuprofen* (Ibuprofen*) 800 Mg Tab, 800 MG PO Q6H PRN for PAIN, TAB 09/23/16 Discontinued Scripts Cefixime (Suprax) 400 Mg Capsule, 400 MG PO DAILY, #7 CAP Prov:KIERA LUZ PA-C 04/25/18 Levofloxacin* (Levaquin*) 500 Mg Tablet, 500 MG PO DAILY for 7 Days, TAB Prov:ELICIA CORREA MD 02/08/18 Naproxen* (Naprosyn*) 500 Mg Tablet, 500 MG PO BID PRN for PAIN AND/OR INFLAMMATION for 10 Days, #20 TAB Prov:JANICE,CAT 02/07/18 Cefixime (Suprax) 400 Mg Capsule, 400 MG PO DAILY for 14 Days, #14 CAP Prov:JANICE,CAT 02/07/18 Naproxen* (Naprosyn*) 500 Mg Tablet, 500 MG PO BID PRN for PAIN AND/OR INFLAMMATION, #30 TAB Prov:NISH MILLAN PA-C 08/14/17 Hydrocodone/Acetaminophen ([place] 5-325 Tablet) 1 Each Tablet, 1 TAB PO Q6H PRN for PAIN, #7 TAB Prov:NISH MILLAN PA-C 08/14/17 Methylprednisolone* (Medrol* DOSE PACK) 4 Mg/Dose-Pack Tab.ds.pk, 4 MG PO . DIRECTED, #1 PACKET Prov:NISH MILLAN PA-C 08/14/17 Valsartan (Valsartan) 80 Mg Tablet, 40 MG PO QHS for 30 Days, TAB 1 Refill Prov:SMITH SADLER MD 09/24/16 Metoprolol Succinate* (Toprol XL*) 25 Mg Tab.sr.24h, 25 MG PO BID for 30 Days, 1 Refill Prov:SMITH SADLER MD 09/24/16 Atorvastatin* (Atorvastatin*) 40 Mg Tablet, 80 MG PO AC DINNER for 30 Days, TAB Prov:SMTIH SADLER MD 09/24/16 [place]-3/Dha/Epa/Fish Oil (FISH OIL EC 1,000 MG SOFTGEL) 1 Each Capsule.dr, 2000 MG PO BID for 30 Days 2 pills in the morning 2 pills in the evening of what you have at home Prov:SMITH SADLER MD 09/24/16 Follow-up Plan 1. Follow up with your primary care physician in 1-2 weeks 2. Take Lipitor daily to help decrease your LDL and cholesterol levels. Also important to follow a low cholesterol, low fat diet 3. Do not take Amlodipine or Metoprolol since your blood pressure and heart rate were both running low 4. If experiencing any concerning symptoms, please go to the nearest emergency department 5. Increase physical exercise as tolerated Primary Care Provider Not On Staff Doctor Time spent on discharge: > 30 minutes Pending Labs Laboratory Tests Test 09/18/18 19:02 09/18/18 22:50 09/19/18 03:50 Hemoglobin A1c 5.1 % (0-5.9) Creatine Kinase 87 IU/L (23-200) 89 IU/L (23-200) Creatine Kinase 0.5 0.5 Index Creatinine Kinase MB 0.47 ng/ml (0.0-2.4) 0.44 ng/ml (0.0-2.4) (Mass) Troponin I < 0.012 < 0.012 ng/ml (0.000-0.120) ng/ml (0.000-0.120) White Blood Count 4.3 10^3/ul (4.8-10.8) Red Blood Count 4.49 10^6/ul (4.70-6.10) Hemoglobin 13.5 g/dl (14.0-18.0) Hematocrit 38.2 % (42.0-52.0) Mean Corpuscular 85.1 fl (82.0-101.0) Volume Mean Corpuscular 30.1 pg (29.0-33.0) Hemoglobin Mean Corpuscular 35.3 Hemoglobin Concent g/dl (32.0-37.0) Red Cell 14.1 % (11.5-14.5) Distribution Width Platelet Count 144 10^3/UL (140-415) Mean Platelet 12.5 fl (7.4-10.4) Volume Immature 0.000 Granulocytes % % (0.001-0.429) Neutrophils % 47.0 % (39.0-77.0) Lymphocytes % 38.0 % (15.0-51.0) Monocytes % 10.3 % (0.0-11.0) Eosinophils % 4.2 % (0.0-7.0) Basophils % 0.5 % (0.0-2.0) Nucleated Red Blood 0.0 Cells % /100WBC (0.0-0.0) Immature 0.000 Granulocytes # 10^3/ul (0.0-0.031) Neutrophils # 2.0 10^3/ul (1.6-7.5) Lymphocytes # 1.6 10^3/ul (0.8-2.9) Monocytes # 0.4 10^3/ul (0.3-0.9) Eosinophils # 0.2 10^3/ul (0.0-0.5) Basophils # 0.0 10^3/ul (0.0-0.1) Nucleated Red Blood 0.0 Cells # 10^3/ul (0.0-0.0) Sodium Level 141 mmol/L (135-144) Potassium Level 4.2 mmol/L (3.5-5.1) Chloride Level 112 mmol/L (97-110) Carbon Dioxide 25 mmol/L (21-31) Level Anion Gap 4 (5-13) Blood Urea Nitrogen 12 mg/dl (7-20) Creatinine 0.85 mg/dl (0.61-1.24) Est Glomerular > 60 mL/min (>60) Filtrat Rate mL/min Glucose Level 133 mg/dl (70-220) Calcium Level 8.4 mg/dl (8.4-10.2) Magnesium Level 2.2 mg/dl (1.7-2.5) Triglycerides Level 127 mg/dl (0-149) Cholesterol Level 226 mg/dl (100-200) LDL Cholesterol, 172 mg/dl Calculated HDL Cholesterol 29 mg/dl (28-71) Cholesterol/HDL 7.7 RATIO Ratio Thyroid Stimulating 0.913 Hormone (TSH) MIU/L (0.465-4.680) FLORA ALVAREZ MD Sep 19, 2018 16:45
[2018-09-19] MEDS ORDERED: ATORVASTATIN 40 MG TAB PO SCH (21:00)
== END 2018-09-19 14:48 | disposition home or self-care (01) ==
LOC: E/R 15:12 → TEL 17:17
PROVIDERS: ADMIT Internal Medicine; ATTEND Internal Medicine
DX: R07.89 Other chest pain (principal); I25.10 Atherosclerotic heart disease of native coronary artery without angina pectoris; Z95.5 Presence of coronary angioplasty implant and graft; R00.1 Bradycardia, unspecified; I10 Essential (primary) hypertension; N31.9 Neuromuscular dysfunction of bladder, unspecified; K21.9 Gastro-esophageal reflux disease without esophagitis; Z79.82 Long term (current) use of aspirin
CPT/HCPCS: 36415; 71045; 71275; 74177; 80048; 80061; 82550; 82553; 83036; 83735; 84443; 84484; 85025; 85610; 85730; 93005; 93306; 96374; 96375; 99285; J1650; J1885; J2270; J2405; J2765; J7030; Q9967; Z7500; Z7610; G0378